=== PATIENT | male | born 1985 | race Caucasian/White ===

== ENCOUNTER 2020-01-09 10:25 | Outpatient (CLI) | payer BC, SELFPAY ==
--- NOTE | ~2020-01-09 | XR_ITS ---
EXAMINATION: XR lumbar spine 2-3V DATE: 01/09/2020 11:09 INDICATION: Dorsalgia unspecified TECHNIQUE: Anteroposterior and lateral views of the lumbar spine, and cone-down lateral view of the l umbosacral junction were obtained. COMPARISON: None. FINDINGS: There is mild anterior wedging of L1 and L2 vertebral bodies, likely physiologic. There are 3 mm of retrolisthesis of L4 on L5. No acute fracture is identified. There is dorsal displacement at the tip of the coccyx, likely normal variant versus prior injury. Small degenerative osteophytes pro ject from the anterior endplates of multiple vertebral bodies. The intervertebral disc space heights are maintained. IMPRESSION: 1. Mild lumbar spondylosis without acute findings. Reviewed, dictated and finalized at location A.
== END 2020-01-09 10:26 ==
PROVIDERS: PCP Physician Assistant; Visit Provider Physician Assistant
DX: M54.9 Dorsalgia, unspecified (principal)
CPT/HCPCS: 72100

== ENCOUNTER 2020-01-10 09:53 | Outpatient (CLI) | payer BC, SELFPAY ==
[2020-01-10 10:31] LABS: Hematocrit 41.5 % (42.0-52.0); Mean Corpuscular HGB Conc 33.7 g/dl (32-36); Mean Corpuscular Hemoglobin 28.5 pg (26-34); Mean Corpuscular Volume 84.3 fl (80-100); Mean Platelet Volume 8.4 fl (7.4-10.4); Platelet Count Result 295 k/mm3 (150-375); Red Blood Count 4.92 M/mm3 (4.6-6.20); Red Cell Distribution Width 12.1 % (11.5-14.5); White Blood Count 8.9 K/mm3 (4.5-10.0)
[2020-01-10 10:40] LABS: Hemoglobin A1C 6.2 % (<5.7)
[2020-01-10 10:47] LABS: Alanine Aminotransferase 21 U/L (4-50); Albumin Level 4.2 g/dL (3.5-5.1); Alkaline Phosphatase 60 U/L (38-126); Anion Gap 10 mmol/L (8-16); Aspartate Amino Transferase 20 U/L (17-59); Bilirubin,Total 0.3 mg/dL (0.2-1.3); Blood Urea Nitrogen 14 mg/dL (9-20); Calcium 9.2 mg/dL (8.4-10.2); Carbon Dioxide 28 mmol/L (22-30); Chloride 100 mmol/L (98-107); Cholesterol 223 mg/dL (0-200); Estimated Glomerular Filt Rate > 60; Glucose 115 mg/dL (75-110); HDL Direct 28 mg/dL; Sodium 138 mmol/L (137-145); Triglycerides 127 mg/dL (<150)
[2020-01-10 10:58] LABS: LDL Cholesterol Direct 175 mg/dL
[2020-01-10 11:10] LABS: Free T4 Free Thyroxine 1.05 ng/mL (0.78-2.19)
== END 2020-01-10 09:54 | disposition home or self-care (01) ==
PROVIDERS: PCP Family Medicine; Visit Provider Physician Assistant
DX: R53.83 Other fatigue (principal); I10 Essential (primary) hypertension; E78.5 Hyperlipidemia, unspecified; E11.9 Type 2 diabetes mellitus without complications
CPT/HCPCS: 36415; 80053; 80061; 83036; 84439; 84443; 85027

== ENCOUNTER 2020-02-15 13:26 | Emergency (ER) | payer BC, SELFPAY ==
--- NOTE | ~2020-02-15 | US_ITS ---
EXAMINATION: US venous doppler LE RT EXAM DATE: 02/15/2020 14:59 INDICATION: Right leg swelling and pain. TECHNIQUE: Multiple grayscale, color flow and Doppler images of the right lower extremity deep venous system were obtained and reviewed. There is no prior study for comparison. FINDINGS: The right common femoral, femoral and profunda veins demonstrate normal color flow, respira tory variation, augmentation and compressibility. Compressibility, color flow confirmed within the r ight popliteal, posterior tibial, peroneal, and greater saphenous veins. IMPRESSION: 1. No right lower extremity deep venous thrombosis. Reviewed, dictated and finalized at location A. NK DASHBOARD DEVELOPER
[2020-02-15 13:33] VITALS: BP 162/107; PULSE 112; RESP 17; TEMP 36.8; O2SAT 98
[2020-02-15 13:56] LABS: Basophils Absolute Auto 0.1 K/mm3 (0.0-0.1); Basophils Percent Auto 0.8 % (0.2-1.2); Eosinophils Absolute Auto 0.2 K/mm3 (0-0.3); Eosinophils Percent Auto 1.7 % (0-4.4); Hemoglobin 14.5 g/dL (14.0-18.0); Immature Granulocyte Absolute 0.04 K/mm3 (0.00-0.031); Immature Granulocyte Percent A 0.4 % (0-0.5); Lymphocytes Absolute Auto 2.26 K/mm3 (0.9-3.2); Lymphocytes Percent Auto 21.3 % (18.3-44.2); Mean Corpuscular HGB Conc 33.7 g/dl (32-36); Mean Corpuscular Hemoglobin 28.9 pg (26-34); Mean Corpuscular Volume 85.8 fl (80-100); Mean Platelet Volume 8.1 fl (7.4-10.4); Monocytes Absolute Auto 1.1 K/mm3 (0.1-0.6); Monocytes Percent Auto 10.2 % (2.6-8.5); Neutrophils Percent Auto 65.6 % (45.5-73.1); Platelet Count Result 319 k/mm3 (150-375); Red Blood Count 5.01 M/mm3 (4.6-6.20); Red Cell Distribution Width 12.7 % (11.5-14.5); White Blood Count 10.6 K/mm3 (4.5-10.0)
--- NOTE | 2020-02-15 14:06 | ED.GENADULT ---
HPI - General Adult General Chief complaint: Extremity Injury, Lower Stated complaint: right leg swollen and reddened Time Seen by Provider: 02/15/20 13:33 Source: patient Mode of arrival: ambulatory Limitations: no limitations History of Present Illness HPI narrative: Patient is a 35-year-old male who presents with ankle pain and swelling noticed yesterday went to urgent care referred to emergency department patient with history of psoriasis has redness and swelling and tenderness around the ankle joint patient denies fever chills or other complaints and is otherwise resting comfortably in the room Related Data Allergies Allergy/AdvReac Type Severity Reaction Status Date / Time No Known Allergies Allergy Unknown Verified 02/15/20 13:32 Review of Systems Review of Systems: All systems reviewed & are unremarkable except as noted in HPI and below PMFSH Past Medical History Medical History HTN (hypertension) Psoriasis Psoriasis Family History Family History Father Diabetes mellitus Depression Hypertension Family history of cardiovascular disease Sibling Depression Hypertension Mother Family history of cardiovascular disease Social History Social History Smoking status: Never smoker Second hand tobacco smoke exposure: Yes Alcohol intake: never Substance use: never Gender identity (if verbalized by the patient): Male Exam Narrative: Exam Narrative: GENERAL: Well-appearing, well-nourished, and in no acute distress. HEAD: Normocephalic, atraumatic. EYES: PERRLA and EOMI. ENT: Nares clear, no rhinorrhea or epistaxis. Mucous membranes moist. CHEST: Clear to auscultation. No respiratory distress. No wheezes rales or rhonchi HEART: Regular rate and rhythm. No murmur heard. EXTREMITIES: Normal range of motion. No edema. SKIN: Warm, dry, no rash. Patient with rash around the bilateral ankles and shins consistent with psoriasis slight swelling of the right ankle minimal erythematous changes if any no drainage NEURO: No focal deficits. Alert and oriented x3. Neurovascularly intact. Capillary refill less than 2 seconds PSYCH: Normal mood and affect. Course Course Emergency Course: Patient in the room no distress will be treated for cellulitis likely secondary to his open wounds given his psoriasis patient otherwise in the room in no distress afebrile nontoxic-appearing agreeing to follow with primary care given reasons to return Vital Signs Vital signs: Vital Signs Temperature 98.3 F 02/15/20 13:33 Pulse Rate 112 H 02/15/20 13:33 Respiratory Rate 17 02/15/20 13:33 Blood Pressure 162/107 H 02/15/20 13:33 Pulse Oximetry 98 02/15/20 13:33 Temperature 98.3 F 02/15/20 13:33 Pulse Rate 112 H 02/15/20 13:33 Respiratory Rate 17 02/15/20 13:33 Blood Pressure 162/107 H 02/15/20 13:33 Pulse Oximetry 98 02/15/20 13:33 Medical Decision Making MDM Narrative Medical decision making narrative: Patients injury or pain is consistent with musculoskeletal etiology. No signs of neurological or vascular compromise on exam. Compartments and tisues are soft without signs of compartment syndrome. Pain is felt appropriate for further evaluation on an outpatient basis. Patient will be treated for cellulitis Vital Signs Vital Signs: Vital Signs Temperature 98.3 F 02/15/20 13:33 Pulse Rate 112 H 02/15/20 13:33 Respiratory Rate 17 02/15/20 13:33 Blood Pressure 162/107 H 02/15/20 13:33 Pulse Oximetry 98 02/15/20 13:33 Temperature 98.3 F 02/15/20 13:33 Pulse Rate 112 H 02/15/20 13:33 Respiratory Rate 17 02/15/20 13:33 Blood Pressure 162/107 H 02/15/20 13:33 Pulse Oximetry 98 02/15/20 13:33 Lab Data Result diagrams: 02/15/20 13:49 02/15/20 13:49 Labs: La
[2020-02-15 14:37] LABS: Alanine Aminotransferase 25 U/L (4-50); Albumin Level 4.3 g/dL (3.5-5.1); Alkaline Phosphatase 68 U/L (38-126); Anion Gap 5 mmol/L (8-16); Aspartate Amino Transferase 28 U/L (17-59); Bilirubin,Total 0.5 mg/dL (0.2-1.3); Blood Urea Nitrogen 17 mg/dL (9-20); CRP 1.6 mg/dL (<1.0); Calcium 9.5 mg/dL (8.4-10.2); Carbon Dioxide 33 mmol/L (22-30); Chloride 99 mmol/L (98-107); Estimated CRCL calculation 126 ml/min; Estimated Glomerular Filt Rate > 60; Glucose 99 mg/dL (75-110); Potassium 3.6 mmol/L (3.4-5.0); Sodium 137 mmol/L (137-145)
[2020-02-15] MEDS: SODIUM CHLORIDE 0.9% IV 1,000 ML 999 ML IV CONT (15:30)
[2020-02-15 16:46] VITALS: BP 147/91; PULSE 97; RESP 17; O2SAT 98
== END 2020-02-15 16:47 | disposition home or self-care (01) ==
PROVIDERS: Emergency Medicine Emergency Medical Services; Emergency Provider Emergency Medicine; PCP Family Medicine
DX: L03.115 Cellulitis of right lower limb (principal); I10 Essential (primary) hypertension
CPT/HCPCS: 36415; 80053; 85025; 86140; 93971; 96360; 99284; J7030

== ENCOUNTER 2020-02-21 11:04 | Outpatient (CLI) | payer BC, SELFPAY ==
--- NOTE | ~2020-02-21 | XR_ITS ---
XR ankle RT min 3V 02/21/2020 11:48 INDICATION: Right ankle pain PROCEDURE: 4 views right ankle COMPARISON: No prior studies for comparison. FINDINGS: Fracture, dislocation or subluxation is not identified. There is moderate diffuse soft tiss ue swelling. The soft tissues appear within normal limits. No foreign bodies are identified. There a re mild degenerative changes of the midfoot. IMPRESSION: 1: NO ACUTE BONE OR JOINT ABNORMALITY IDENTIFIED. Reviewed, dictated and finalized at location A. UST DRIER
== END 2020-02-21 11:05 ==
PROVIDERS: PCP Family Medicine; Visit Provider Physician Assistant
DX: M25.579 Pain in unspecified ankle and joints of unspecified foot (principal)
CPT/HCPCS: 73610

== ENCOUNTER 2020-04-01 00:23 | Emergency (ER) | payer OTHER, BC, SELFPAY ==
--- NOTE | ~2020-04-01 | XR_ITS ---
XR knee LT 3V 04/01/2020 01:18 Indication: Left knee pain after fall Procedure: 4 views left knee Comparison: 02/12/2019 Findings: Mild osteoarthritis of the left knee. No significant joint effusion. No foreign bodies. No acute fracture or traumatic malalignment. Impression: 1: No acute fracture. Reviewed, dictated and finalized at location A. OGICAL MODELER Impression: 1: No acute fracture.
--- NOTE | ~2020-04-01 | XR_ITS ---
XR shoulder LT min 2V 04/01/2020 01:18 Indication: Left shoulder pain after fall Procedure: 4 views left shoulder Comparison: No prior studies for comparison. Findings: There is a lucency in the mid aspect of the left clavicle. Nondisplaced fracture not exclud ed. There is anatomic alignment of the left shoulder. Visualized lung parenchyma unremarkable. Impression: 1: Possible nondisplaced left midclavicular fracture. Reviewed, dictated and finalized at location A. LOGIST Impression: 1: Possible nondisplaced left midclavicular fracture.
[2020-04-01 00:28] VITALS: BP 154/96; PULSE 106; RESP 12; TEMP 36.6; O2SAT 96
--- NOTE | 2020-04-01 01:14 | ED.GENADULT ---
HPI - General Adult General Chief complaint: Fall Stated complaint: Fall, Hit head Time Seen by Provider: 04/01/20 00:38 History of Present Illness HPI narrative: Patient 35-year-old gentleman who presents the emergency department with chief complaint of fall. Patient reports he was at work and tripped over a box and fell patient states he struck a wall with his left shoulder and left knee. Patient states he also struck his head against the wall had no loss of consciousness denies nausea or vomiting reports that he has normal mental status just feels a little lightheaded afterwards. Patient denies being on blood thinners denies being on antiplatelet therapy denies previous head injury or prior intracranial process. Patient reports his left shoulder hurts whenever he moves it in his left knee hurts whenever he moves it. Related Data Allergies Allergy/AdvReac Type Severity Reaction Status Date / Time No Known Allergies Allergy Unknown Verified 04/01/20 00:32 Review of Systems Review of Systems: Narrative: A 10 system review of systems was completed on the patient and is negative except for what is stated in the HPI. Nursing and ancillary documentation was reviewed. PMFSH Past Medical History Medical History HTN (hypertension) Psoriasis Psoriasis Family History Family History Father Diabetes mellitus Depression Hypertension Family history of cardiovascular disease Sibling Depression Hypertension Mother Family history of cardiovascular disease Social History Social History Smoking status: Never smoker Second hand tobacco smoke exposure: Yes Alcohol intake: never Substance use: never Gender identity (if verbalized by the patient): Male Exam Narrative: Exam Narrative: GENERAL: Well-appearing, well-nourished, and in no acute distress. HEAD: Normocephalic, atraumatic. EYES: PERRLA and EOMI. ENT: Nares clear, no rhinorrhea or epistaxis. Mucous membranes moist. NECK: Supple. CHEST: Clear to auscultation. No respiratory distress. HEART: Regular rate and rhythm. No murmur heard. Normal peripheral pulses. ABDOMEN: Soft, nontender, nondistended, normal active bowel sounds. EXTREMITIES: Normal range of motion. No edema. There is tenderness to palpation in the left shoulder and the left knee there is no bony step-off noted no deformity SKIN: Warm, dry, no rash. NEURO: No focal deficits. Alert and oriented x3. GCS 15 PSYCH: Normal mood and affect. Course Course Emergency Course: Plain film x-rays of the left shoulder and left knee were obtained which showed no evidence of fracture Given the patient is GCS 15 and shows no focal neurological deficit was discussed with the patient whether helical imaging of the brain was necessary. It was explained that at this time emergent head CT was not required and it was recommended that conservative management be carried out. Vital Signs Vital signs: Vital Signs Temperature 36.6 C 04/01/20 00:28 Pulse Rate 106 H 04/01/20 00:28 Respiratory Rate 12 04/01/20 00:28 Blood Pressure 154/96 H 04/01/20 00:28 Pulse Oximetry 96 04/01/20 00:28 Temperature 36.6 C 04/01/20 00:28 Pulse Rate 106 H 04/01/20 00:28 Respiratory Rate 12 04/01/20 00:28 Blood Pressure 154/96 H 04/01/20 00:28 Pulse Oximetry 96 04/01/20 00:28 Medical Decision Making Vital Signs Vital Signs: Vital Signs Temperature 36.6 C 04/01/20 00:28 Pulse Rate 106 H 04/01/20 00:28 Respiratory Rate 12 04/01/20 00:28 Blood Pressure 154/96 H 04/01/20 00:28 Pulse Oximetry 96 04/01/20 00:28 Temperature 36.6 C 04/01/20 00:28 Pulse Rate 106 H 04/01/20 00:28 Respiratory Rate 12 04/01/20 00:28 Blood Pressure 154/96 H 04/01/20 00:28 Pulse Oximetry 96 04/01/20 00:28
--- NOTE | 2020-04-01 08:51 | PC.NURSE ---
X-ray discrepancy. Pt has nondisplaced clavicle fracture. Called pt at home spoke with him. Informed him to return to ER to get a sling applied and to follow-up with Dr Gandara. Pt also got a work note to be off work until released by Dr Gandara.
--- NOTE | 2020-04-01 10:00 | PC.NURSE ---
Placed x-large sling to left arm. Gave instructions on following up with Dr Gandara. Explained importance of wearing the sling. Also gave pt off work release and explained the work release to him. Voiced understanding - Gait steady leaving the ER
== END 2020-04-01 01:29 | disposition home or self-care (01) ==
PROVIDERS: Emergency Provider Emergency Medicine; PCP Family Medicine
DX: S09.90XA Unspecified injury of head, initial encounter (principal); W18.09XA Striking against other object with subsequent fall, initial encounter; S40.012A Contusion of left shoulder, initial encounter; S80.02XA Contusion of left knee, initial encounter; I10 Essential (primary) hypertension
CPT/HCPCS: 73030; 73562; 99284; A4565

== ENCOUNTER 2020-07-10 12:53 | Emergency (ER) | payer BC, SELFPAY ==
--- NOTE | 2020-07-10 13:04 | ECG_ITS ---
Measurements Intervals [place] Rate: 85 P: 11 [place]: 143 QRS: 10 QRSD: 97 T: 18 QT: 348 QTc: 414 Interpretive Statements SINUS RHYTHM BORDERLINE ST-T WAVE ABNORMALITY- HIGH LATERAL LEADS BORDERLINE ECG Electronically Signed On 07-10-2020 13:18:55 CDT by Sergei Shore D.O.
--- NOTE | 2020-07-10 13:10 | ED.DIZZY ---
HPI - Dizziness General Chief Complaint: Unspecified Stated Complaint: dizzy, weak Time Seen by Provider: 07/10/20 12:59 History of Present Illness HPI Narrative: Patient is a 35-year-old male who presents to the ER with dizziness. Began around 7 AM. Associate with some chest tightness. Dizziness And feel unsteady when he moves. Is worse with turning his head. No change in vision or hearing. No focal weakness or numbness. Symptoms were making him feel confused while he was working at [employer] where he opted to come in for further evaluation. He is found no alleviating factors. Related Data Allergies Allergy/AdvReac Type Severity Reaction Status Date / Time No Known Allergies Allergy Unknown Verified 04/01/20 00:32 Review of Systems Review of Systems: All systems reviewed & are unremarkable except as noted in HPI and below Constitutional: Constitutional: Denies chills, Denies fever(s) and Denies weakness ENT: Reports dizziness, Denies nasal congestion and Denies sore throat Cardiovascular: Cardiovascular: Reports chest pain, Denies rapid heart rate and Denies radiating jaw, neck or arm pain Respiratory: Respiratory: Denies cough and Denies dyspnea Neurologic: Denies headache(s), Denies focal weakness and Denies numbness PMFSH Past Medical History Medical History (Updated 07/10/20 @ 14:49 by Nathen Tamayo MD) HTN (hypertension) Psoriasis Psoriasis Surgical History Surgical History (Updated 07/10/20 @ 13:11 by Nathen Tamayo MD) No pertinent past surgical history Family History Family History Father Diabetes mellitus Depression Hypertension Family history of cardiovascular disease Sibling Depression Hypertension Mother Family history of cardiovascular disease Social History Social History Smoking status: Never smoker Second hand tobacco smoke exposure: Yes Alcohol intake: never Substance use: never Gender identity (if verbalized by the patient): Male Exam Narrative: Exam Narrative: GENERAL: Well-appearing, well-nourished, and in no acute distress. HEAD: Normocephalic, atraumatic. EYES: PERRL and EOMI. ENT: Mucous membranes moist. Normal right tympanic membrane. Left TM obscured by cerumen impaction. CHEST: Clear to auscultation. No respiratory distress. HEART: Regular rate and rhythm. Normal peripheral pulses. EXTREMITIES: Normal range of motion. Normal ability to stand and ambulate. 1+ edema. SKIN: Warm, dry, psoriatic rash prominently over the shins and knees as well as the hands. NEURO: Alert and oriented x3. Ambulates with steady gait. Cranial nerves II through XII intact. Course Course Emergency Course: Left TM appears normal after ear irrigation by nurse to remove cerumen impaction. Dizziness resolved. Discharge home. Vital Signs Vital signs: Vital Signs Temperature 98.4 F 07/10/20 13:13 Pulse Rate 88 07/10/20 13:13 Respiratory Rate 18 07/10/20 13:13 Blood Pressure 144/97 H 07/10/20 13:13 Pulse Oximetry 99 07/10/20 13:13 Temperature 98.4 F 07/10/20 13:13 Pulse Rate 87 07/10/20 14:33 Respiratory Rate 16 07/10/20 14:33 Blood Pressure 124/90 07/10/20 14:33 Pulse Oximetry 100 07/10/20 14:33 Discharge Plan Discharge Clinical Impression: Cerumen impaction, Vertigo Patient Disposition: Home, Self-Care Condition: Stable Instructions: Carbamide Peroxide (Into the ear), Vertigo (ED) Additional Instructions: Return the ER if you have worsening dizziness, you cannot walk, you have focal weakness in arm or leg, you have additional concerns. Prescriptions: No Action lisinopril-hydrochlorothiazide 10-12.5 mg tablet 1 tablet PO DAILY Qty: 90 RF: 1 cephalexin [Keflex] 500 mg capsule 500 mg PO Q8H 10 Days Qty: 30 RF: 0 Follow-up/Referrals: Annmarie Brown MD [Primary Care
[2020-07-10 13:13] VITALS: BP 144/97; PULSE 88; RESP 18; TEMP 36.9; O2SAT 99
[2020-07-10] MEDS: MECLIZINE HCL 25 MG TABLET PO (13:28)
[2020-07-10 14:33] VITALS: BP 124/90; PULSE 87; RESP 16; O2SAT 100
== END 2020-07-10 15:12 | disposition home or self-care (01) ==
PROVIDERS: Emergency Provider Emergency Medicine; PCP Family Medicine
DX: R42 Dizziness and giddiness (principal); H61.22 Impacted cerumen, left ear; I10 Essential (primary) hypertension; R94.31 Abnormal electrocardiogram [ECG] [EKG]
CPT/HCPCS: 69209; 93005; 99283; A9270

== ENCOUNTER 2020-12-11 18:37 | Emergency (ER) | payer BC, SELFPAY ==
[2020-12-11 18:56] VITALS: BP 147/85; PULSE 93; RESP 19; TEMP 37; O2SAT 98
[2020-12-11 19:46] VITALS: BP 131/79; PULSE 90; RESP 29; O2SAT 97
--- NOTE | 2020-12-11 20:01 | ED.GENADULT ---
HPI - General Adult General Chief complaint: Dizziness Stated complaint: dizzy Time Seen by Provider: 12/11/20 19:47 History of Present Illness HPI narrative: Patient 35-year-old gentleman who presents the emergency department with chief complaint of vertigo. Patient reports he was at work and had sudden onset of rotational type dizziness reports it was worse with head movement and improved with rest. Patient states it was rather violent initially did not cause him to have any nausea or vomiting denies any focal neurological deficits reports that it is resolved by the time he arrived in the emergency department. Patient denies chest pain denies dysarthria or problems with speech. Related Data Allergies Allergy/AdvReac Type Severity Reaction Status Date / Time No Known Allergies Allergy Unknown Verified 12/11/20 19:39 Review of Systems Review of Systems: A 10 system review of systems was completed on the patient and is negative except for what is stated in the HPI. Nursing and ancillary documentation was reviewed. PMFSH Past Medical History Medical History HTN (hypertension) Psoriasis Psoriasis Surgical History Surgical History No pertinent past surgical history Family History Family History Father Diabetes mellitus Depression Hypertension Family history of cardiovascular disease Sibling Depression Hypertension Mother Family history of cardiovascular disease Social History Social History Smoking status: Never smoker Second hand tobacco smoke exposure: Yes Alcohol intake: never Substance use: never Gender identity (if verbalized by the patient): Male Exam Narrative: GENERAL: Well-appearing, well-nourished, and in no acute distress. HEAD: Normocephalic, atraumatic. EYES: PERRLA and EOMI. ENT: Nares clear, no rhinorrhea or epistaxis. Mucous membranes moist. NECK: Supple. CHEST: Clear to auscultation. No respiratory distress. HEART: Regular rate and rhythm. No murmur heard. Normal peripheral pulses. ABDOMEN: Soft, nontender, nondistended, normal active bowel sounds. EXTREMITIES: Normal range of motion. No edema. SKIN: Warm, dry, no rash. NEURO: No focal deficits. Alert and oriented x3. Positive Hallpike PSYCH: Normal mood and affect. Course Vital Signs Vital signs: Vital Signs Temperature 37.0 C 12/11/20 18:56 Pulse Rate 93 12/11/20 18:56 Respiratory Rate 19 12/11/20 18:56 Blood Pressure 147/85 H 12/11/20 18:56 Pulse Oximetry 98 12/11/20 18:56 Temperature 37.0 C 12/11/20 18:56 Pulse Rate 90 12/11/20 19:46 Respiratory Rate 29 H 12/11/20 19:46 Blood Pressure 131/79 12/11/20 19:46 Pulse Oximetry 97 12/11/20 19:46 Medical Decision Making Vital Signs Vital Signs: Vital Signs Temperature 37.0 C 12/11/20 18:56 Pulse Rate 93 12/11/20 18:56 Respiratory Rate 19 12/11/20 18:56 Blood Pressure 147/85 H 12/11/20 18:56 Pulse Oximetry 98 12/11/20 18:56 Temperature 37.0 C 12/11/20 18:56 Pulse Rate 90 12/11/20 19:46 Respiratory Rate 29 H 12/11/20 19:46 Blood Pressure 131/79 12/11/20 19:46 Pulse Oximetry 97 12/11/20 19:46 Discharge Plan Discharge Clinical Impression: Benign paroxysmal positional vertigo Qualifiers: Laterality: right Qualified Code(s): H81.11 - Benign paroxysmal vertigo, right ear Patient Disposition: Home, Self-Care Condition: Stable Instructions: Antibiotic Form, Benign Paroxysmal Positional Vertigo (ED) Prescriptions: New meclizine 25 mg tablet 25 mg PO TID PRN (Reason: dizziness) Qty: 30 RF: 0 No Action lisinopril-hydrochlorothiazide 10-12.5 mg tablet 1 tablet PO DAILY Qty: 90 RF: 1 Follow-up/Referrals: Annmarie Brown
[2020-12-11] MEDS: MECLIZINE HCL 25 MG TABLET PO (20:12)
[2020-12-11 20:41] VITALS: BP 143/72; PULSE 87; RESP 20; O2SAT 99
== END 2020-12-11 20:43 | disposition home or self-care (01) ==
LOC: ANHED 20:30
PROVIDERS: Emergency Provider Emergency Medicine; PCP Family Medicine
DX: H81.11 Benign paroxysmal vertigo, right ear (principal); I10 Essential (primary) hypertension
CPT/HCPCS: 99283; A9270

== ENCOUNTER 2021-01-22 10:58 | Emergency (ER) | payer OTHER, BC, SELFPAY ==
--- NOTE | ~2021-01-22 | XR_ITS ---
EXAMINATION: XR ankle RT min 3V INDICATION: Right ankle pain TECHNIQUE: Four views of the right ankle are obtained COMPARISON: 02/21/2020 FINDINGS: Ankle soft tissue swelling is present. There is no fracture, dislocation, or subluxation. P osterior calcaneal enthesophyte is noted. There is mild osteoarthritis of the midfoot. IMPRESSION: 1. Soft tissue swelling without acute osseous abnormality. Reviewed, dictated and finalized at location A.
[2021-01-22 11:20] VITALS: BP 148/83; PULSE 97; RESP 18; TEMP 37.2; O2SAT 98
--- NOTE | 2021-01-22 11:24 | ED.LOWEXIN ---
HPI - Extremity Injury (Lower) General Chief Complaint: Extremity Injury, Lower Stated Complaint: Pain Rt Ankle Source: patient and RN notes reviewed Mode of arrival: ambulatory History of Present Illness HPI Narrative: This is a 36-year-old male that presented to urgent care with complaints of pain to his right ankle status post trauma. Patient is an employee at [employer] and notes that while at work he was walking in his right ankle inverted inwards which caused pain with weightbearing. Patient's imaging negative for fracture dislocation. Patient's pulses are palpable capillary refill within normal limit no neurovascular deficiency noted. The patient denies SOB, CP, palpitation, extremity numbness, lightheadedness, dizziness, constipation, diarrhea, chills, or fever. Related Data Allergies Allergy/AdvReac Type Severity Reaction Status Date / Time No Known Allergies Allergy Unknown Verified 12/11/20 19:39 Review of Systems Review of Systems: A 14 organ system Review of Systems was performed and pertinent positives included in the HPI, otherwise remaining ROS is negative. [facility] Past Medical History Medical History HTN (hypertension) Psoriasis Psoriasis Surgical History Surgical History No pertinent past surgical history Family History Family History Father Diabetes mellitus Depression Hypertension Family history of cardiovascular disease Sibling Depression Hypertension Mother Family history of cardiovascular disease Social History Social History Smoking status: Never smoker Second hand tobacco smoke exposure: Yes Alcohol intake: never Substance use: never Gender identity (if verbalized by the patient): Male Exam Narrative: GENERAL: This is a well-nourished, well-developed patient, in no apparent distress. HEAD: normocephalic, atraumatic. EYES: PERRL. Sclera clear/white. Vision is grossly intact. EARS: External ears normal, auditory canals clear and without drainage, TMs normal without perforation. Hearing grossly intact. NOSE: External nose normal with no obvious nasal discharge, nares without redness, no rhinorrhea. THROAT: Mucous membranes moist, posterior pharynx clear. NECK: Neck supple, non-tender without lymphadenopathy, masses or thyromegaly. CARDIOVASCULAR: Regular rate and rhythm without murmurs, gallops, or rubs. RESPIRATORY: Clear to auscultation. Breath sounds equal bilaterally. No wheezes, rales, or rhonchi. GASTROINTESTINAL: Abdomen soft, non-tender, nondistended. Bowel sounds are active. No hepato-splenomegaly, or palpable masses. No guarding. SKIN: warm, intact with no suspicious lesions or rash, good texture and turgor. NEURO: awake, alert, and oriented to person, place and time. There were no obvious focal neurologic abnormalities. Steady gait EXTREMITIES: Normal range of motion with pain to right ankle. Slight edema to the right ankle. No calf tenderness. Negative Homans sign bilaterally. BACK: Nontender without deformity or crepitance. No flank tenderness. Course Course Emergency Course: Patient will be treated for strain or sprain will discharge with Flexeril and ibuprofen and instructed to follow-up with primary care physician if his symptoms do not resolve. Procedures Other Procedure Procedure 1: Other Procedure: Ariel wrap with crutches to the right ankle MDM - Extremity Injury (Lower) Imaging Data Attestation: I personally reviewed and interpreted this imaging study as follows: My impression: Negative for fracture dislocation Discharge Plan Discharge Clinical Impression: Sprain and strain of right ankle Patient Disposition: Home, Self-Care Condition: Stable Instructions: Antibiotic Form, Ankle Sprain (ED) Additional
== END 2021-01-22 12:14 | disposition home or self-care (01) ==
PROVIDERS: Emergency Provider Nurse Practitioner; PCP Family Medicine
DX: S93.401A Sprain of unspecified ligament of right ankle, initial encounter (principal); S96.911A Strain of unspecified muscle and tendon at ankle and foot level, right foot, initial encounter; X50.9XXA Other and unspecified overexertion or strenuous movements or postures, initial encounter; Y93.01 Activity, walking, marching and hiking; Y99.0 Civilian activity done for income or pay; I10 Essential (primary) hypertension; L40.9 Psoriasis, unspecified
CPT/HCPCS: 73610; 99213; G0463

== ENCOUNTER 2021-10-06 11:02 | Emergency (ER) | payer BC, SELFPAY ==
[2021-10-06] VITALS (15 sets, daily range): BP systolic 116–144; BP diastolic 71–89; PULSE 93–108; RESP 17–27; TEMP 36.8–37.8; O2SAT 95–100
--- NOTE | ~2021-10-06 | XR_ITS ---
EXAMINATION: XR chest 1V portable DATE: 10/06/2021 12:32 INDICATION: Syncope. TECHNIQUE: A single frontal view of the chest was obtained. COMPARISON: None. FINDINGS: The chest demonstrates clear lungs without pneumonia, pleural effusion, or pneumothorax. Th e heart size is normal. IMPRESSION: 1. No acute cardiopulmonary disease. Reviewed, dictated and finalized at location A.
--- NOTE | 2021-10-06 11:02 | ECG_ITS ---
Measurements Intervals [place] Rate: 102 P: 37 RI: 164 QRS: 6 QRSD: 88 T: 17 QT: 323 QTc: 422 Interpretive Statements SINUS TACHYCARDIA CONSIDER INFERIOR INFARCT, AGE INDETERMINATE NONSPECIFIC ST & T-WAVE ABNORMALITY- ANTEROLAT/HIGH LAT LEADS BASELINE ARTIFACT- I, II, III, V1 ABNORMAL ECG Electronically Signed On 10-06-2021 11:22:46 CDT by Sergei Shore D.O.
[2021-10-06 11:11] LABS: Glucose Point of Care 121 mg/dl (65-105)
[2021-10-06 11:22] LABS: Basophils Absolute Auto 0.1 K/mm3 (0.0-0.1); Basophils Percent Auto 0.8 % (0.2-1.2); Eosinophils Absolute Auto 0.3 K/mm3 (0-0.3); Eosinophils Percent Auto 3.4 % (0-4.4); Hematocrit 41.2 % (42.0-52.0); Hemoglobin 13.7 g/dL (14.0-18.0); Immature Granulocyte Absolute 0.08 K/mm3 (0.00-0.031); Immature Granulocyte Percent A 0.9 % (0-0.5); Lymphocytes Absolute Auto 1.84 K/mm3 (0.9-3.2); Lymphocytes Percent Auto 19.8 % (18.3-44.2); Mean Corpuscular HGB Conc 33.3 g/dl (32-36); Mean Corpuscular Hemoglobin 28.6 pg (26-34); Mean Platelet Volume 8.5 fl (7.4-10.4); Monocytes Absolute Auto 0.6 K/mm3 (0.1-0.6); Monocytes Percent Auto 6.8 % (2.6-8.5); Neutrophils Absolute Auto 6.4 K/mm3 (1.3-6.7); Neutrophils Percent Auto 68.3 % (45.5-73.1); Platelet Count Result 277 k/mm3 (150-375); Red Blood Count 4.79 M/mm3 (4.6-6.20); Red Cell Distribution Width 12.9 % (11.5-14.5); White Blood Count 9.3 K/mm3 (4.5-10.0)
[2021-10-06 11:34] LABS: Alanine Aminotransferase 23 U/L (6-50); Albumin Level 4.3 g/dL (3.5-5.1); Alkaline Phosphatase 53 U/L (38-126); Anion Gap 7 mmol/L (8-16); Aspartate Amino Transferase 19 U/L (17-59); Bilirubin,Total 0.3 mg/dL (0.2-1.3); Blood Urea Nitrogen 12 mg/dL (9-20); Calcium 9.4 mg/dL (8.4-10.2); Carbon Dioxide 29 mmol/L (22-30); Chloride 104 mmol/L (98-107); Estimated CRCL calculation 129 ml/min; Estimated Glomerular Filt Rate > 60; Glucose 116 mg/dL (65-110); Potassium 3.4 mmol/L (3.4-5.0); Sodium 140 mmol/L (137-145)
[2021-10-06 12:28] LABS: Creatine Kinase 47 U/L (55-170)
[2021-10-06] MEDS: SODIUM CHLORIDE 0.9% IV 1,000 ML 999 ML IV CONT ×2 (12:30→13:55)
[2021-10-06 12:32] LABS: Troponin I < 0.012 ng/mL (0.000-0.034)
--- NOTE | 2021-10-06 12:46 | ED.GENADULT ---
HPI - General Adult General Chief complaint: Syncope Stated complaint: syncopal Time Seen by Provider: 10/06/21 12:01 Source: RN notes reviewed History of Present Illness HPI narrative: Patient presents emergency department from work for syncopal episode. 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 Following feeling overheated he began to feel lightheaded and states he sat down on a bench where he had a syncopal episode lasting approximately 10 seconds per her coworkers the patient did not fall to the ground he states that he experienced no chest pain or shortness of breath he states he feels fine at this time he denies any recent illness he denies any previous history of syncopal episodes he states he did feel very hot prior to the episode Related Data Allergies Allergy/AdvReac Type Severity Reaction Status Date / Time No Known Allergies Allergy Unknown Verified 10/06/21 12:30 Review of Systems Review of Systems: Gen.: Denies fevers or chills Eyes: Denies eye pain or visual change ENT: Denies congestion Respiratory: Denies shortness of breath or cough CV: Reports syncopal episode GI: Denies abdominal pain nausea, emesis or diarrhea Musculoskeletal: Denies back pain or muscle pain Neuro: Denies numbness, tingling, weakness or focal weakness Skin: Denies rash Except as documented, all other systems reviewed and negative [facility] Past Medical History Medical History HTN (hypertension) Psoriasis Psoriasis Surgical History Surgical History No pertinent past surgical history Family History Family History Father Diabetes mellitus Depression Hypertension Family history of cardiovascular disease Sibling Depression Hypertension Mother Family history of cardiovascular disease Social History Social History Smoking status: Never smoker Second hand tobacco smoke exposure: Yes Alcohol intake: never Substance use: never Gender identity (if verbalized by the patient): Male Exam Narrative: APPEARANCE: No acute distress, nontoxic, resting in bed EYES: EOMI, PERRL HEENT: Normocephalic, atraumatic, OMM RESPIRATORY: No respiratory distress Clear to auscultation bilaterally with no rhonchi wheezing or rales. CARDIOVASCULAR: Regular rate and rhythm without murmurs rubs or gallops. ABDOMINAL: Soft, nontender, nondistended, no rebound or guarding MUSCULOSKELETAl: Moves all extremities. No clubbing, cyanosis or edema. NEURO: Awake and alert. Following commands, speech normal, no focal deficits SKIN:: Warm, dry. No rashes lesions or abrasions PSYCHIATRIC: Normal affect/mood, Course Course Emergency Course: Patient is remained asymptomatic throughout stay in ED states he is feeling much better Discussed with patient results of workup and diagnosis. Discussed need for follow-up with primary care, proper use of medication, and reasons to return to the emergency department. Patient understands and agrees to current treatment plan Vital Signs Vital signs: Vital Signs Temperature 100.1 F H 10/06/21 11:03 Pulse Rate 105 H 10/06/21 11:03 Respiratory Rate 22 H 10/06/21 11:03 Pulse Oximetry 96 10/06/21 11:03 Oxygen Delivery Room Air 10/06/21 11:03 Temperature 98.2 F 10/06/21 12:21 Pulse Rate 95 10/06/21 15:55 Respiratory Rate 18 10/06/21 15:55 Blood Pressure 123/89 10/06/21 15:55 Pulse Oximetry 98 10/06/21 15:55 Oxygen Delivery Room Air 10/06/21 11:03 Medical Decision Making MDM Narrative Medical decision making narrative: Patient's episode of syncope is felt due to high risk cause. Syncopal episode was brief and patient is now back to normal mental status. EKG is reviewed without high-risk german
[2021-10-06 13:39] LABS: Appearance Urine Clear (Clear); Bilirubin Urine Negative (Negative); Color Urine Yellow (Yellow); Glucose Urine UA Negative (Negative); Ketones Urine Negative (Negative); Leukocyte Esterase Ur Negative LEU/UL (Negative); Nitrate Urine Negative (Negative); Protein Urine Negative (Negative); Specific Grav Ur 1.025 (1.001-1.035); Urobilinogen Urine 0.2 mg/dL (<2.0)
[2021-10-06 13:48] LABS: Mucus Urine Rare /lpf; Squamous Epithelial Cell Urine Rare /hpf (Few); WBC Urine 0-3 /hpf
[2021-10-06 13:49] LABS: Add Urine Microscopic? YES; Blood Urine Trace-Intact (Negative)
[2021-10-06 14:34] LABS: D Dimer 0.31 ug/mL (<0.48)
[2021-10-06 15:47] LABS: Troponin I < 0.012 ng/mL (0.000-0.034)
== END 2021-10-06 16:37 | disposition home or self-care (01) ==
PROVIDERS: Emergency Medicine; Emergency Provider Emergency Medicine; PCP Family Medicine
DX: R55 Syncope and collapse (principal); I10 Essential (primary) hypertension; R00.0 Tachycardia, unspecified; R94.31 Abnormal electrocardiogram [ECG] [EKG]
CPT/HCPCS: 36415; 71045; 80053; 81001; 82550; 82948; 84484; 85025; 85380; 93005; 96360; 96361; 99284; J7030

== ENCOUNTER 2021-11-10 09:01 | Emergency (ER) | payer BC, SELFPAY ==
--- NOTE | ~2021-11-10 | XR_ITS ---
XR knee RT min 4V 11/10/2021 09:29 INDICATION: Right knee pain PROCEDURE: 4 views right knee COMPARISON: 09/30/2003 FINDINGS: Fracture, dislocation or subluxation is not identified. No significant joint effusion. The soft tissues appear within normal limits. No foreign bodies are identified. IMPRESSION: 1: NO ACUTE BONE OR JOINT ABNORMALITY IDENTIFIED. Reviewed, dictated and finalized at location B.
[2021-11-10 09:04] VITALS: BP 150/94; PULSE 100; RESP 18; TEMP 36.7; O2SAT 99
--- NOTE | 2021-11-10 09:48 | ED.GENADULT ---
HPI - General Adult General Chief complaint: Extremity Injury, Lower Stated complaint: right knee pain Time Seen by Provider: 11/10/21 09:09 Source: RN notes reviewed History of Present Illness HPI narrative: Patient presents emerged department from home for right knee pain. Patient states that he fell walking in a parking lot when he tripped over a planter in the parking lot approximately 2 days ago. He states that he came down on his right leg and felt that it bent awkwardly states he has had pain in the right knee since that time this worse with bending the knee states he has been taking ibuprofen with help with the pain and swelling he denies any other trauma or injury denies any pain over his hip or ankle Related Data Allergies Allergy/AdvReac Type Severity Reaction Status Date / Time No Known Allergies Allergy Unknown Verified 10/06/21 12:30 Review of Systems Review of Systems: Gen.: Denies fevers or chills Musculoskeletal: See HPI Neuro: Denies numbness, tingling, weakness Skin: Denies rash Endo: Denies DM PMFSH Past Medical History Medical History HTN (hypertension) Psoriasis Psoriasis Surgical History Surgical History No pertinent past surgical history Family History Family History Father Diabetes mellitus Depression Hypertension Family history of cardiovascular disease Sibling Depression Hypertension Mother Family history of cardiovascular disease Social History Social History Smoking status: Never smoker Second hand tobacco smoke exposure: Yes Alcohol intake: never Substance use: never Gender identity (if verbalized by the patient): Male Exam Narrative: APPEARANCE: No acute distress, nontoxic, resting in bed Eyes: EOMI HEENT: Normocephalic, atraumatic, RESPIRATORY: No respiratory distress MUSCULOSKELETAl: Tender to palpation of the right medial lateral and posterior knee mild swelling no ecchymosis no tenderness of the right ankle or hip dorsalis pedis pulse 2+ neuro vas intact pain with flexion greater than 45 degrees NEURO: Awake and alert. Following commands, speech normal, no focal deficits SKIN:: Warm, dry. Normal Color no rash or lesions Course Course Emergency Course: Discussed with patient results of workup and diagnosis. Discussed need for follow-up with primary care, proper use of medication, and reasons to return to the emergency department. Patient understands and agrees to current treatment plan Vital Signs Vital signs: Vital Signs Temperature 98.0 F 11/10/21 09:04 Pulse Rate 100 11/10/21 09:04 Respiratory Rate 18 11/10/21 09:04 Blood Pressure 150/94 H 11/10/21 09:04 Pulse Oximetry 99 11/10/21 09:04 Oxygen Delivery Room Air 11/10/21 09:04 Temperature 98.0 F 11/10/21 09:04 Pulse Rate 100 11/10/21 09:04 Respiratory Rate 18 11/10/21 09:04 Blood Pressure 150/94 H 11/10/21 09:04 Pulse Oximetry 99 11/10/21 09:04 Oxygen Delivery Room Air 11/10/21 09:04 Medical Decision Making Vital Signs Vital Signs: Vital Signs Temperature 98.0 F 11/10/21 09:04 Pulse Rate 100 11/10/21 09:04 Respiratory Rate 18 11/10/21 09:04 Blood Pressure 150/94 H 11/10/21 09:04 Pulse Oximetry 99 11/10/21 09:04 Oxygen Delivery Room Air 11/10/21 09:04 Temperature 98.0 F 11/10/21 09:04 Pulse Rate 100 11/10/21 09:04 Respiratory Rate 18 11/10/21 09:04 Blood Pressure 150/94 H 11/10/21 09:04 Pulse Oximetry 99 11/10/21 09:04 Oxygen Delivery Room Air 11/10/21 09:04 Discharge Plan Discharge Clinical Impression: Contusion of knee, right Patient Disposition: Home, Self-Care Condition: Stable Instructions: Antibiotic Form, Contusion in Adults (ED) Additional Instructio
== END 2021-11-10 10:10 | disposition home or self-care (01) ==
PROVIDERS: Emergency Provider Emergency Medicine; PCP Family Medicine
DX: S80.01XA Contusion of right knee, initial encounter (principal); I10 Essential (primary) hypertension; W01.0XXA Fall on same level from slipping, tripping and stumbling without subsequent striking against object, initial encounter
CPT/HCPCS: 73564; 99283

== ENCOUNTER 2022-03-14 14:30 | Emergency (ER) | payer BC, SELFPAY ==
[2022-03-14 15:15] VITALS: BP 142/93; PULSE 88; RESP 20; TEMP 36.5; O2SAT 97
--- NOTE | 2022-03-14 15:36 | ED.EAR ---
HPI - Ear Problem General Chief complaint: Ear Stated complaint: Lt Ear Irritation Time Seen by Provider: 03/14/22 15:36 Source: patient Mode of arrival: ambulatory Limitations: no limitations History of Present Illness HPI Narrative: 37-year-old male presented for complaint of left ear pain for 4 days. He endorses fullness sensation and muffled hearing. Pain radiates to TMJ. He denies associated sinus congestion, tinnitus, dizziness, nausea, vomiting, fevers or chills. He has taken ibuprofen without significant change in symptoms. He endorses a history of earwax impaction. He attempted [id number] drops 2 days ago without any change. MD Complaint: ear pain Related Data Home Medications Medication Instructions Recorded Confirmed clobetasol 0.05 % topical ointment 1 applic topical DAILY 03/14/22 03/14/22 Allergies Allergy/AdvReac Type Severity Reaction Status Date / Time No Known Allergies Allergy Unknown Verified 03/14/22 15:34 Review of Systems Review of Systems: ROS per HPI. All systems reviewed & are unremarkable except as noted in HPI and below PMFSH Past Medical History Medical History HTN (hypertension) Psoriasis Psoriasis Surgical History Surgical History No pertinent past surgical history Family History Family History Father Diabetes mellitus Depression Hypertension Family history of cardiovascular disease Sibling Depression Hypertension Mother Family history of cardiovascular disease Social History Social History Smoking status: Never smoker Second hand tobacco smoke exposure: Yes Alcohol intake: never Substance use: never Gender identity (if verbalized by the patient): Male Comments At time of signature, agree with nursing past medical, surgical, social and family history. There is no relevant family history pertinent to the presenting complaint Exam Narrative: GENERAL: Well-appearing EYES: PERRLA, conjunctivae clear ENT: Nares clear. Mucous membranes moist. Dental pain/jaw pain to broken tooth at #17, mild gum swelling; Right TM pearly magallanes with normal light reflex; Left TM unable to visualize due to cerumen impaction; no tragal tenderness. CHEST: Clear to auscultation, breath sounds equal. No wheezing, rhonchi, rales, or stridor. HEART: Regular rate and rhythm. No murmur heard. SKIN: Warm, dry, no rash. NEURO: Alert and oriented x3. PSYCH: Normal mood and affect Course Course Emergency Course: Patient is aware of diagnosis, understands and agrees to treatment plan. Anticipatory guidance given. Patient agrees to follow-up as directed and is aware of reasons to seek care at the emergency department. Portions of this record may have been created with voice recognition software Level of Care: Express Care Visit Vital Signs Vital signs: Vital Signs Temperature 97.7 F 03/14/22 15:15 Pulse Rate 88 03/14/22 15:15 Respiratory Rate 20 03/14/22 15:15 Blood Pressure 142/93 H 03/14/22 15:15 Pulse Oximetry 97 03/14/22 15:15 Oxygen Delivery Room Air 03/14/22 15:15 Temperature 97.7 F 03/14/22 15:15 Pulse Rate 88 03/14/22 15:15 Respiratory Rate 20 03/14/22 15:15 Blood Pressure 142/93 H 03/14/22 15:15 Pulse Oximetry 97 03/14/22 15:15 Oxygen Delivery Room Air 03/14/22 15:15 Reviewed Procedures Ear Wax Removal Left Ear: Ear Wax Removal Date: 03/14/22 Cerumenolytic Used: other (hydrogen peroxide, warm water) Results: Re-examined: some cerumen remains (near TM) Ear Canal Exam: atraumatic Patient Tolerated Procedure: well and no complications Technique: ear canal irrigated and ear canal curetted Additional Comments: patient reported pain after mode
== END 2022-03-14 16:35 | disposition home or self-care (01) ==
PROVIDERS: Emergency Provider Nurse Practitioner Family; PCP Family Medicine
DX: K08.89 Other specified disorders of teeth and supporting structures (principal); H61.22 Impacted cerumen, left ear; I10 Essential (primary) hypertension; L40.9 Psoriasis, unspecified
CPT/HCPCS: 69210; 99213; G0463

== ENCOUNTER 2022-04-27 06:30 | Emergency (ER) | payer OTHER, BC, SELFPAY ==
--- NOTE | ~2022-04-27 | CT_ITS ---
EXAMINATION: CT cervical spine wo con DATE: 04/27/2022 07:03 INDICATION: Head injury. Neck injury. TECHNIQUE: Computed tomography (CT) of the cervical spine was performed without intravenous contrast. Automated exposure control and iterative reconstruction technique were employed. The dose-length pro duct was 442.40 mGy-cm. COMPARISON: None FINDINGS: There is 5 degrees dextrocurvature of cervical spine. There is hypolordosis of cervical spi ne. Vertebral body heights are normal. There is mildly decreased disc height at C7-T1. The following disc levels are specifically discussed: C2-C3: There is mild right uncovertebral joint osteoarthritis. There is no facet joint osteoarthritis . There is no neural foraminal stenosis. There is no central canal stenosis. C3-C4 through C6-C7: There is no uncovertebral joint osteoarthritis. There is no facet joint osteoart hritis. There is no neural foraminal stenosis. There is no central canal stenosis. C7-T1: There is no uncovertebral joint osteoarthritis. There is mild left facet joint osteoarthritis. There is no neural foraminal stenosis. There is no central canal stenosis. IMPRESSION: 1. No fracture. Reviewed, dictated and finalized at location A. TERM CARE ADMINISTRATOR IMPRESSION: 1. No fracture.
--- NOTE | ~2022-04-27 | CT_ITS ---
EXAMINATION: CT brain wo con DATE: 04/27/2022 07:03 INDICATION: Head injury. Syncope. TECHNIQUE: Computed tomography (CT) of the head was performed without intravenous contrast. The mA wa s adjusted according to patient size. Iterative reconstruction technique was employed. The dose-lengt h product was 605.33 mGy-cm. COMPARISON: None FINDINGS: There is no intracranial hemorrhage, acute infarction, or abnormal intracranial mass lesion . The ventricles are normal in size. The orbits are normal. There is mild mucosal thickening in the p aranasal sinuses. The mastoid air cells are normal. There is posterior scalp soft tissue swelling. IMPRESSION: 1. Normal brain. Reviewed, dictated and finalized at location A. DRIVER IMPRESSION: 1. Normal brain.
[2022-04-27 06:36] VITALS: BP 139/87; PULSE 88; RESP 22; TEMP 36.6; O2SAT 97
--- NOTE | 2022-04-27 06:40 | ED.FALL ---
HPI - Fall General Chief Complaint: Fall <Jostin Zapien MD - Last Filed: 05/01/22 18:55> Stated Complaint: Slipped in parking lot, hit head <Jostin Zapien MD - Last Filed: 05/01/22 18:55> Time Seen by Provider: 04/27/22 06:34 <Jostin Zapien MD - Last Filed: 05/01/22 18:55> History of Present Illness HPI Narrative: 37-year-old male presenting to the emergency department for evaluation after having a head injury. Patient was walking through the parking lot at a [employer] and slipped falling backwards and striking his head. Bystanders were concerned that the patient did have loss of consciousness. EMS was called and patient arrived to the emergency department in a c-collar. Patient's only complaint is headache. Patient denies any neck or back pain. Patient denies any other pain or injury. Patient does have a history of hypertension <Jostin Zapien MD - Last Filed: 05/01/22 18:55> Related Data Home Medications: Home Medications Medication Instructions Recorded Confirmed clobetasol 0.05 % topical ointment 1 applic topical DAILY 03/14/22 03/14/22 <Jostin Zapien MD - Last Filed: 05/01/22 18:55> Allergies/Adverse Reactions: Allergies Allergy/AdvReac Type Severity Reaction Status Date / Time No Known Allergies Allergy Unknown Verified 03/14/22 15:34 <Jostin Zapien MD - Last Filed: 05/01/22 18:55> Review of Systems Review of Systems: CONSTITUTIONAL: Denies fever, chills, or sweats. EYES: Denies visual changes, redness, or discharge. ENT: Denies rhinorrhea, congestion, sore throat, or otalgia. CARDIOVASCULAR: Denies chest pain, palpitations, or edema. RESPIRATORY: Denies cough or dyspnea. GASTROINTESTINAL: Denies abdominal pain, nausea, vomiting, or diarrhea. GENITOURINARY: Denies dysuria or hematuria. SKIN: Denies rash or itching. MUSCULOSKELETAL: Denies back pain, joint pain, or myalgia. NEUROLOGIC: Headache/posterior scalp pain, see HPI <Jostin Zapien MD - Last Filed: 05/01/22 18:55> PMFSH Past Medical History Medical History: Medical History HTN (hypertension) Psoriasis Psoriasis <Jostin Zapien MD - Last Filed: 05/01/22 18:55> Surgical History Surgical History: Surgical History No pertinent past surgical history <Jostin Zapien MD - Last Filed: 05/01/22 18:55> Family History Family History: Family History Father Diabetes mellitus Depression Hypertension Family history of cardiovascular disease Sibling Depression Hypertension Mother Family history of cardiovascular disease <Jostin Zapien MD - Last Filed: 05/01/22 18:55> Social History Social History: Social History Smoking status: Never smoker Second hand tobacco smoke exposure: Yes Alcohol intake: never Substance use: never Occupation/Education: occupation Gender identity (if verbalized by the patient): Male <Jostin Zapien MD - Last Filed: 05/01/22 18:55> Exam Narrative: APPEARANCE: Well appearing, no pain, no distress, well-nourished. HEAD: normocephalic, posterior contusion with no large hematoma EYES: PERRLA/EOMI, conjunctivae clear. NOSE: Normal no drainage EARS:TMS clear with good light reflex. NECK: Supple. No adenopathy, no masses. RESPIRATORY: Airway patent, respirations nonlabored. Clear to auscultation bilaterally, no rales, rhonchi, wheezing. CARDIOVASCULAR: Regular rate and rhythm without murmurs rubs or gallops. ABDOMINAL: Soft, nontender, nondistended, normal bowel sounds MUSCULOSKELETAL: Moves all extremities. Strength/ROM intact, No edema, No calf tenderness. No midline tenderness to cervical thoracic or lumbar spine. NEURO: Alert. Cranial nerves II through XII intact. Grossly intact SK
[2022-04-27 06:45] VITALS: BP 155/100; PULSE 82; RESP 19; O2SAT 98
[2022-04-27 07:15] VITALS: BP 148/98; PULSE 78; RESP 19; O2SAT 98
[2022-04-27 07:35] VITALS: BP 149/101; PULSE 83; RESP 17; O2SAT 97
== END 2022-04-27 07:36 | disposition home or self-care (01) ==
PROVIDERS: Emergency Provider Emergency Medicine; PCP Family Medicine
DX: S09.90XA Unspecified injury of head, initial encounter (principal); I10 Essential (primary) hypertension; W01.0XXA Fall on same level from slipping, tripping and stumbling without subsequent striking against object, initial encounter
CPT/HCPCS: 70450; 72125; 99284

== ENCOUNTER 2023-05-15 02:26 | Inpatient (IN) | payer BC, SELFPAY ==
[2023-05-15] VITALS (42 sets, daily range): BP systolic 125–168; BP diastolic 71–110; PULSE 79–99; RESP 12–26; TEMP 36.2–36.8; O2SAT 94–100; BMI 52.0
--- NOTE | ~2023-05-15 | XR_ITS ---
EXAMINATION: XR chest 2V DATE: 05/15/2023 03:14 INDICATION: Midsternal chest pain TECHNIQUE: PA and lateral views of the chest were obtained. COMPARISON: Chest radiograph dated 10/06/2021 FINDINGS: The lungs remain clear with no focal airspace opacities, pulmonary edema, pleural effusion or pneumot horax. The cardiomediastinal silhouette is normal. IMPRESSION: 1. No acute cardiopulmonary disease. Reviewed, dictated and finalized at location A. . MANAGER
--- NOTE | 2023-05-15 02:27 | ECG_ITS ---
Measurements Intervals [place] Rate: 95 P: 51 [place]: 155 QRS: 14 QRSD: 98 T: 75 QT: 346 QTc: 436 Interpretive Statements SINUS RHYTHM NONSPECIFIC ST & T-WAVE ABNORMALITY BORDERLINE ECG COMPARED TO ECG 10/06/2021 11:05:54 NO DIFFERENCE Electronically Signed On 05-15-2023 8:29:19 ATMOSPHERIC TECHNICIAN by Joshua Dorsey M.D.
[2023-05-15 02:49] LABS: Basophils Absolute Auto 0.1 K/mm3 (0.0-0.1); Basophils Percent Auto 0.7 % (0.2-1.2); Eosinophils Absolute Auto 0.3 K/mm3 (0-0.3); Eosinophils Percent Auto 3.1 % (0-4.4); Hematocrit 41.5 % (42.0-52.0); Hemoglobin 13.5 g/dL (14.0-18.0); Immature Granulocyte Absolute 0.04 K/mm3 (0.00-0.031); Immature Granulocyte Percent A 0.5 % (0-0.5); Lymphocytes Absolute Auto 2.35 K/mm3 (0.9-3.2); Lymphocytes Percent Auto 27.4 % (18.3-44.2); Mean Corpuscular HGB Conc 32.5 g/dl (32-36); Mean Corpuscular Hemoglobin 28.5 pg (26-34); Mean Corpuscular Volume 87.7 fl (80-100); Mean Platelet Volume 8.8 fl (7.4-10.4); Monocytes Absolute Auto 0.9 K/mm3 (0.1-0.6); Monocytes Percent Auto 9.9 % (2.6-8.5); Neutrophils Percent Auto 58.4 % (45.5-73.1); Platelet Count Result 293 k/mm3 (150-375); Red Blood Count 4.73 M/mm3 (4.6-6.20); Red Cell Distribution Width 13.3 % (11.5-14.5); White Blood Count 8.6 K/mm3 (4.5-10.0)
[2023-05-15 03:00] LABS: INR 1.1; Prothrombin Time 14.1 Seconds (11.1-14.7)
[2023-05-15 03:01] LABS: Partial Thromboplastin Time 31.3 SECONDS (22.3-36.8)
[2023-05-15 03:03] LABS: Alanine Aminotransferase 27 U/L (6-50); Albumin Level 4.3 g/dL (3.5-5.1); Alkaline Phosphatase 57 U/L (38-126); Anion Gap 9 mmol/L (8-16); Aspartate Amino Transferase 27 U/L (17-59); Bilirubin,Total 0.6 mg/dL (0.2-1.3); Blood Urea Nitrogen 17 mg/dL (9-20); Calcium 9.4 mg/dL (8.4-10.2); Carbon Dioxide 25 mmol/L (22-30); Chloride 102 mmol/L (98-107); Estimated CRCL calculation 139 ml/min; Estimated Glomerular Filt Rate > 60; Glucose 171 mg/dL (65-110); Lipase 89 U/L (23-300); Potassium 3.4 mmol/L (3.4-5.0); Sodium 136 mmol/L (137-145)
[2023-05-15 03:27] LABS: Troponin I 0.062 ng/mL (0.000-0.034)
[2023-05-15 04:52] LABS: NT Pro B Type Natriuretic Pept 34 pg/mL (19.9-100)
--- NOTE | 2023-05-15 04:52 | ED.GENADULT ---
HPI - General Adult General Chief complaint: Chest Pain Stated complaint: Chest Pain Time Seen by Provider: 05/15/23 03:41 History of Present Illness HPI narrative: This is a 38-year-old male ED chief complaint of chest pain. patient states 1:00 a.m. his woke sleep by pressure in the center chest radiates to left side of his chest. Is 3/10 intensity constant. He has never had pain like this before. Improved he rested there are no exacerbating symptoms. There is no diaphoresis nausea vomiting or exertional component. No shortness of. Patient does have edema of the lower extremities right worse than left. Related Data Home Medications Medication Instructions Recorded Confirmed clobetasol 0.05 % topical ointment 1 applic topical DAILY 03/14/22 03/14/22 Allergies Allergy/AdvReac Type Severity Reaction Status Date / Time No Known Allergies Allergy Unknown Verified 03/14/22 15:34 [facility] Past Medical History Medical History HTN (hypertension) Psoriasis Psoriasis Surgical History Surgical History No pertinent past surgical history Family History Family History Father Diabetes mellitus Depression Hypertension Family history of cardiovascular disease Sibling Depression Hypertension Mother Family history of cardiovascular disease Social History Social History Smoking status: Never smoker Second hand tobacco smoke exposure: Yes Alcohol intake: never Substance use: never Occupation/Education: occupation Gender identity (if verbalized by the patient): Male Exam Narrative: APPEARANCE: No apparent distress. Head: atraumatic. EYES: EOMI, NOSE: Atraumatic NECK: Trachea midline RESPIRATORY: No increased rate of breathing, CTAB CARDIOVASCULAR: RRR, Pitting edema in lower extremities right > left ABDOMINAL: Non-distended MUSCULOSKELETAl: No obvious deformities NEURO: Alert. Moving 4/4 extremities SKIN:: Warm, dry. Normal color PSYCHIATRIC: Normal affect Course Vital Signs Vital signs: Vital Signs Temperature 97.8 F 05/15/23 02:41 Pulse Rate 93 05/15/23 02:41 Respiratory Rate 20 05/15/23 02:41 Blood Pressure 155/98 H 05/15/23 02:41 Pulse Oximetry 98 05/15/23 02:41 Oxygen Delivery Room Air 05/15/23 02:41 Temperature 97.8 F 05/15/23 02:41 Pulse Rate 97 05/15/23 06:01 Respiratory Rate 17 05/15/23 06:00 Blood Pressure 131/76 05/15/23 06:01 Pulse Oximetry 97 05/15/23 06:01 Oxygen Delivery Room Air 05/15/23 03:40 Medical Decision Making [facility] Narrative Medical decision making narrative: -Course: 38-year-old male presenting with chest pain. Found to have NSTEMI. Patient be admitted the IMU for further management. -DDX includes but is not limited to: ACS, embolism, aortic dissection, PNA, PTX -Co-morbidities complicating care: hypertension, psoriasis -Social determinants of health: works at [employer] with mom and dad -Independent interpretation of studies: CBC normal. Metabolic panel unremarkable. troponin 0.062. -> .152 BNP 34 Chest x-ray normal. Independent EKG interpretation: Rhythm [sinus], Rate [95], [place] -[normal], [place] -[normal], QRS [narrow], QTC [normal], T waves -[negative for concerning inversions], ST Segments - [Negative for concerning elevations] Final interpretations: [Normal Sinus Rhythm] -Discussion of Management/Consultants:Dipesh - HospitalistMaki - Cardiology -Interventions:Nitro SL, ASA, metoprolol, Lipitor, morphine, oxygen -Shared decision making / Disposition: admitted Vital Signs Vital Signs: Vital Signs Temperature 97.8 F 05/15/23 02:41 Pulse Rate 93 05/15/23 02:41 Respiratory Rate 20 05/15/23 02:41 Blood Pressure 155/98 H 05/15/23 02:41 Pulse Oximetry
[2023-05-15] MEDS: ASPIRIN 81 MG CHEWABLE TABLET 324 MG PO (05:46)
[2023-05-15] MEDS: NITROGLYCERIN SL 0.4 MG TABLET SUBLINGUAL (05:46)
[2023-05-15 05:53] LABS: D Dimer 0.38 ug/mL (<0.48)
[2023-05-15 06:14] LABS: Troponin I 0.152 ng/mL (0.000-0.034)
--- NOTE | 2023-05-15 06:15 | ECHO_ITS ---
Patient Info Name: Drew Mendes Age: 38 years : 1985 Gender: Male Ht: 63 in Wt: 310 lbs BSA: 2.59 m2 HR: 61 bpm BP: 129 / 92 mmHg Heart Rhythm: Sinus Rhythm Technical Quality: Good Exam Date: 05/15/2023 1:35 PM Exam Location: Echo Lab Patient Status: Inpatient Admit Date: 05/15/2023 Staff Ordering Physician: Geovanni Wilcox MD Senior Estimator: John Paul De Los Santos RDCS Attending Provider: Mark Carey MD Referring Physician: Brenden CHOPRA; Exam Type: CA echo doppler color flow Study Info Indications - NSTEMI Complete two-dimensional, color flow and Doppler transthoracic echocardiogram is performed. Summary 1. Complete two-dimensional, color flow and Doppler transthoracic echocardiogram is performed. 2. Technically challenging echocardiogram quality because of obesity. 3. Normal appearing left ventricular size with grossly normal LV function. 4. Grade 1 diastolic noncompliance. 5. Trivial mitral regurgitation. Left Ventricle Left ventricular chamber dimension is normal. Left ventricular systolic function is normal, estimated at 60-65%. The left ventricular diastolic function is grade I diastolic dysfunction. Right Ventricle Right ventricular chamber dimension is normal. Left Atria Left atrial chamber dimension is normal. Right Atria Right atrial chamber dimension is normal. Aortic Valve The aortic valve is normal. Pulmonic Valve The pulmonic valve is not well visualized. Mitral Valve The mitral valve has normal leaflets. Tricuspid Valve The tricuspid valve leaflets are not well visualized. Pericardium/Pleural The pericardium appears normal. Aorta The aortic root size at the sinus of Valsalva is normal. Left Ventricular Outflow Tract Name Value Normal LVOT 2D LVOT Diameter 1.9 cm LVOT Doppler LVOT Peak Gradient 6 mmHg LVOT Mean Gradient 3 mmHg LVOT VTI 29 cm LVOT VTI/AV VTI Ratio 1.1 LVOT Stroke Volume 86 ml LVOT CO 6.8 l/min LVOT CI 2.6 l/min/m2 Pulmonic Valve Name Value Normal RVOT Doppler RVOT Peak Gradient 4 mmHg PV Doppler PV Peak Gradient 7 mmHg Mitral Valve Name Value Normal MV Doppler MV Decel [place] 497 cm/s2 MV PHT 58 ms MV Area (PHT) 3.8 cm2 4.0-5.0 MV Regurgitation Doppler
[2023-05-15] MEDS: HEPARIN SOD/D5W 100 UNITS/ML 25,000 UNITS/250 ML BAG 10 UNITS IV CONT (06:57)
[2023-05-15] MEDS: HEPARIN SODIUM 5,000 UNITS/ML VIAL 4000 UNITS IV PUSH ×3 (06:57→21:19)
[2023-05-15] MEDS: METOPROLOL TARTRATE INJ 5 MG/5 ML VIAL IV PUSH (07:38)
--- NOTE | 2023-05-15 08:50 | ECG_ITS ---
Measurements Intervals [place] Rate: 90 P: 46 [place]: 160 QRS: 6 QRSD: 89 T: 59 QT: 351 QTc: 430 Interpretive Statements SINUS RHYTHM NONSPECIFIC ST & T-WAVE ABNORMALITY BORDERLINE ECG COMPARED TO ECG 05/15/2023 02:31:17 NO SIGNIFICANT CHANGES Electronically Signed On 05-15-2023 19:11:22 MARINE SERVICES TECHNICIAN by Joshua Dorsey M.D.
--- NOTE | 2023-05-15 09:08 | ECG_ITS ---
Measurements Intervals [place] Rate: 81 P: 30 NH: 146 QRS: 5 QRSD: 83 T: 47 QT: 360 QTc: 419 Interpretive Statements SINUS RHYTHM NONSPECIFIC T-WAVE ABNORMALITY COMPARED TO ECG 05/15/2023 05:39:58 NO SIGNIFICANT CHANGES Electronically Signed On 05-17-2023 18:18:26 [employer] by Jeffery Pelaez M.D.
[2023-05-15 09:11] LABS: Basophils Absolute Auto 0.1 K/mm3 (0.0-0.1); Basophils Percent Auto 0.7 % (0.2-1.2); Eosinophils Absolute Auto 0.2 K/mm3 (0-0.3); Eosinophils Percent Auto 1.9 % (0-4.4); Hematocrit 39.6 % (42.0-52.0); Hemoglobin 13.1 g/dL (14.0-18.0); Immature Granulocyte Absolute 0.06 K/mm3 (0.00-0.031); Immature Granulocyte Percent A 0.6 % (0-0.5); Lymphocytes Absolute Auto 2.05 K/mm3 (0.9-3.2); Lymphocytes Percent Auto 21.2 % (18.3-44.2); Mean Corpuscular HGB Conc 33.1 g/dl (32-36); Mean Corpuscular Hemoglobin 28.6 pg (26-34); Mean Corpuscular Volume 86.5 fl (80-100); Mean Platelet Volume 8.6 fl (7.4-10.4); Monocytes Absolute Auto 0.7 K/mm3 (0.1-0.6); Monocytes Percent Auto 6.9 % (2.6-8.5); Neutrophils Absolute Auto 6.7 K/mm3 (1.3-6.7); Neutrophils Percent Auto 68.7 % (45.5-73.1); Platelet Count Result 287 k/mm3 (150-375); Red Blood Count 4.58 M/mm3 (4.6-6.20); Red Cell Distribution Width 13.2 % (11.5-14.5); White Blood Count 9.7 K/mm3 (4.5-10.0)
[2023-05-15 09:25] LABS: Cholesterol 201 mg/dL (0-200); HDL Direct 30 mg/dL; Triglycerides 93 mg/dL (<150)
[2023-05-15 09:29] LABS: INR 1.1; Prothrombin Time 14.4 Seconds (11.1-14.7)
[2023-05-15 09:31] LABS: Partial Thromboplastin Time 44.4 SECONDS (22.3-36.8)
[2023-05-15 09:36] LABS: LDL Cholesterol Direct 150 mg/dL
[2023-05-15 09:39] LABS: Troponin I 0.819 ng/mL (0.000-0.034)
--- NOTE | 2023-05-15 09:44 | PC.NURSE ---
CALL OUT TO DR PARHAM TO INFORM OF INCREASED TROPONIN
--- NOTE | 2023-05-15 10:01 | PC.NURSE ---
SPOKE TO DIONE, NO NEW ORDERS
[2023-05-15] MEDS: METOPROLOL TARTRATE 25 MG TABLET PO ×2 (10:20→21:19)
[2023-05-15] MEDS: ATORVASTATIN 40 MG TABLET PO (10:20)
--- NOTE | 2023-05-15 13:17 | PM.IMHP ---
H&P: HPI History of Present Illness Date/Time: 05/15/23 13:17 Chief Complaint: Chest pain Narrative: 38yo male with HTN and psoriasis here for chest pain. Patient was awaken this morning at 1am from sleep due to chest pain described ans 'prssure' with lsight radiation to the left chest but not to the back, arms or neck. No diaphoresis, SOB, dizziness, nausea or lightheadedness. Pain was rated 3/10. The pain was not pleuritic, palpable or positional. Over the years he has had dyspnea on exertion and mild chest discomfort when he over exerts himself but the chest pain this morning was different than prior. He has not had any symptoms of increasing dyspnea on exertion. He is a nonsmoker. He has hypertension but no tobacco use, hyperlipidemia or diabetes. His father had coronary disease in his 40s. Been no changes in his medications. On his way to the emergency room, patient's chest pain he was began to ease off. He received nitroglycerin in the emergency room but was unsure of this was helpful. Emergency room, blood pressure was elevated at 150 5/98 otherwise his vital signs were stable. EKG showed normal sinus rhythm with nonspecific ST-T wave changes. Chest x-ray was clear. CBC, PT, PTT and D-dimer were essentially normal. CMP was normal except for a sodium 136 and a glucose of 171. Cholesterol was 201 with LDL 150 and HDL 30. Was given aspirin and SL nitroglycerin. IV metoprolol was given once. Was started on heparin drip. He was admitted for further care. Review of Systems Review of Systems: All systems reviewed & are unremarkable except as noted in HPI and below [facility] Past Medical History Medical History (Updated 05/15/23 @ 13:41 by Pipe Young MD) HTN (hypertension) Morbid obesity Psoriasis Surgical History Surgical History (Updated 05/15/23 @ 13:25 by Pipe Young MD) H/O toe surgery Family History Family History Father Diabetes mellitus Depression Hypertension Family history of cardiovascular disease Sibling Depression Hypertension Mother Family history of cardiovascular disease Social History Social History (Updated 05/15/23 @ 13:27 by Pipe Young MD) Social History: No history of tobacco. Smokes marijuana once every other weekend. No history of alcohol use. No history of IV drug use. Lives at home with his mother, father, sister and nephew. He nominates his sister to be the individual would make medical decisions for him if h is unable. He is full code. Smoking status: Never smoker Second hand tobacco smoke exposure: Yes Alcohol intake: never Substance use: never Occupation/Education: occupation Gender identity (if verbalized by the patient): Male Meds Home Medications and Allergies Home Medications Medication Instructions Recorded Confirmed Type clobetasol 0.05 % topical ointment 1 applic topical DAILY 03/14/22 03/14/22 History ibuprofen 800 mg tablet 800 mg PO TID PRN pain #15 tabs 03/14/22 Rx penicillin V potassium 500 mg 500 mg PO Q12H 7 days #14 tabs 03/14/22 Rx tablet lisinopril 10 1 tablet PO DAILY #90 tabs 09/28/22 Rx mg-hydrochlorothiazide 12.5 mg tablet Allergies Allergy/AdvReac Type Severity Reaction Status Date / Time No Known Allergies Allergy Unknown Verified 03/14/22 15:34 Vital Signs Vital Signs - 24 hr 05/15/23 02:41 05/15/23 03:40 05/15/23 03:40 Temperature 97.8 F Pulse Rate 93 97 Respiratory Rate 20 Blood Pressure 155/98 H Pulse Oximetry 98 98 Oxygen Delivery Room Air Room Air 05/15/23 03:37 05/15/23 03:38 05/15/23 03:50 Temperature Pulse Rate 94 Respiratory Rate 12 Blood Pressure 168/110 H Pulse Oximetry 97 98 96 Oxygen Delivery 05/15/23 04:00 05/15/23 04:35 05/15/23 05:01 Temperature Pulse Rate 93 96 89 Respiratory Rate 14 20 22 H Blood Pressure 148/100 H Pulse Oximetry 97 96 94
[2023-05-15 14:12] LABS: Partial Thromboplastin Time 31.7 SECONDS (22.3-36.8)
--- NOTE | 2023-05-15 14:48 | ADMGEN ---
This patient, Drew Mendes, was admitted to IMU Room 205-02. Patient/family oriented to hospital policies and general routines including ID bracelet, bed and alarms, visiting hours, pain management, procedures, bathroom and other care routines, personal items, smoking policy, room service/diet, and visiting hours. Information on how to activate the Rapid Response Team has been discussed. Patient/Family are encouraged to report perceived risks to care and to ask questions if they do not understand what they are told or what they should do.
--- NOTE | 2023-05-15 17:10 | PM.CNCAR ---
Assessment and Plan Assessment and plan (1) Non-ST elevation AK (NSTEMI): Code(s): I21.4 - Non-ST elevation (NSTEMI) myocardial infarction Status: Acute Plan This is a 38-year-old man with hypertension and morbid obesity presenting with acute coronary syndrome/non ST elevation AK. At the moment he is stable and has been treated with aspirin, anticoagulation, beta-blockers and statins. If he remains stable in this fashion we will plan on proceeding with coronary angiography on Wednesday. If he has recurrent symptoms of ischemic pain or and or destabilize is in some fashion with proceed urgently earlier than that.Thank you for this interesting consultation in this unfortunate young man Joshua Dorsey MD [facility] History of Present Illness History of Present Illness Consult date/time: 05/15/23 17:10 Reason For Visit: STEMI Narrative: This is a 38-year-old man I am seeing at the request of the hospitalist because of non ST elevation AK. The patient is unknown to me prior to this encounter he is very pleasant gentleman who came to the emergency room in the middle of the night because of chest pain. He states his awakened from sleep at about 1:00 a.m. in the morning he described as a dull retrosternal pressure-like sensation that was not associated with any other symptoms nor any radiation to any other location in his body. He recalls that his father has history of premature coronary disease so when this symptom had been going on for about an hour without relief he decided to come to the emergency room and be evaluated. Apparently shortly after arriving here before receiving any real treatment his symptoms gradually resolved or at least improved he states they totally resolved after he received some sublingual nitroglycerin and aspirin. He has been feeling fine since then he spent the rest of the night and in late early this evening in the ER waiting for a bed upstairs. He feels well at this time and is only complaint is being hungry. His electrocardiograms do not show any evidence of acute injury or ischemia but his troponin levels did rise up to 2.0 indicating obvious evidence of an acute myocardial injury. He has a history of hypertension for which he takes lisinopril but no other known medical problems specifically denies dyslipidemia diabetes or cigarette smoking. He is morbidly obese with a BMI of 52.1. He has been admitted to the IMU and is on a heparin drip he has received orders for aspirin beta-blockers and statins. Review of Systems Constitutional: Constitutional: Reports no additional constitutional complaints Eyes: Eyes: Reports no additional eye complaints ENT: Reports system reviewed and no additional complaints, except as documented Cardiovascular: Cardiovascular: Reports no additional cardiovascular complaints Respiratory: Respiratory: Reports no additional respiratory complaints Gastrointestinal: Gastrointestinal: Reports no additional gastrointestinal complaints Musculoskeletal: Musculoskeletal: Reports no additional musculoskeletal complaints Integumentary/Breasts: Skin/Breast: Reports system reviewed and no additional complaints, except as docu Neurologic: Reports system reviewed and no additional complaints, except as documented Endocrine: Endocrine: Reports no additional endocrine complaints Hematologic/Lymphatic: Hematologic/Lymphatic: Reports no additional hematologic/lymphatic complaints Allergic/Immunologic: Allergic/Immunologic: Reports no additional allergic/immunologic complaints PMFSH Past Medical History Medical History (Updated 05/15/23 @ 13:41 by Pipe Young MD) HTN (hypertension) Morbid obesity Psoriasis Surgical History Surgical History (Updated 05/15/23 @ 13:25 by Pipe Young MD) H/O toe surgery Family History Family History Father Diabetes mellitus Depression Hypertension Family history of
[2023-05-15 17:35] LABS: Glucose Point of Care 105 mg/dl (65-105)
[2023-05-15 19:56] LABS: Glucose Point of Care 156 mg/dl (65-105)
[2023-05-15 20:53] LABS: Partial Thromboplastin Time 36.5 SECONDS (22.3-36.8)
[2023-05-16] VITALS (18 sets, daily range): BP systolic 125–155; BP diastolic 71–99; PULSE 80–101; RESP 17–18; TEMP 36.3–36.9; O2SAT 97–98
[2023-05-16] MEDS: HEPARIN SOD/D5W 100 UNITS/ML 25,000 UNITS/250 ML BAG 18 UNITS IV CONT (00:43)
[2023-05-16 04:35] LABS: Alanine Aminotransferase 25 U/L (6-50); Alkaline Phosphatase 59 U/L (38-126); Anion Gap 5 mmol/L (8-16); Aspartate Amino Transferase 30 U/L (17-59); Bilirubin,Total 0.8 mg/dL (0.2-1.3); Blood Urea Nitrogen 10 mg/dL (9-20); Calcium 9.1 mg/dL (8.4-10.2); Carbon Dioxide 28 mmol/L (22-30); Chloride 103 mmol/L (98-107); Estimated CRCL calculation 154 ml/min; Estimated Glomerular Filt Rate > 60; Glucose 118 mg/dL (65-110); Potassium 3.7 mmol/L (3.4-5.0); Sodium 136 mmol/L (137-145)
[2023-05-16 04:41] LABS: Basophils Absolute Auto 0.1 K/mm3 (0.0-0.1); Basophils Percent Auto 0.8 % (0.2-1.2); Eosinophils Absolute Auto 0.2 K/mm3 (0-0.3); Eosinophils Percent Auto 2.5 % (0-4.4); Hematocrit 41.5 % (42.0-52.0); Hemoglobin 13.4 g/dL (14.0-18.0); Immature Granulocyte Absolute 0.05 K/mm3 (0.00-0.031); Immature Granulocyte Percent A 0.5 % (0-0.5); Lymphocytes Percent Auto 23.7 % (18.3-44.2); Mean Corpuscular HGB Conc 32.3 g/dl (32-36); Mean Corpuscular Hemoglobin 28.3 pg (26-34); Mean Corpuscular Volume 87.7 fl (80-100); Monocytes Absolute Auto 0.8 K/mm3 (0.1-0.6); Monocytes Percent Auto 8.9 % (2.6-8.5); Neutrophils Absolute Auto 5.9 K/mm3 (1.3-6.7); Neutrophils Percent Auto 63.6 % (45.5-73.1); Platelet Count Result 258 k/mm3 (150-375); Red Blood Count 4.73 M/mm3 (4.6-6.20); Red Cell Distribution Width 13.3 % (11.5-14.5); White Blood Count 9.3 K/mm3 (4.5-10.0)
[2023-05-16 04:45] LABS: Partial Thromboplastin Time 50.7 SECONDS (22.3-36.8)
[2023-05-16] MEDS: HEPARIN SODIUM 5,000 UNITS/ML VIAL 4000 UNITS IV PUSH (05:03)
[2023-05-16 07:45] LABS: Glucose Point of Care 103 mg/dl (65-105)
[2023-05-16] MEDS: ATORVASTATIN 40 MG TABLET PO (09:09)
[2023-05-16] MEDS: ASPIRIN 81 MG CHEWABLE TABLET PO (09:09)
[2023-05-16] MEDS: METOPROLOL TARTRATE 25 MG TABLET PO ×2 (09:10→20:18)
--- NOTE | 2023-05-16 10:56 | PM.PNCARD ---
Progress Note: A&P Assessment and Plan (1) Non-ST elevation [place] (NSTEMI): Code(s): I21.4 - Non-ST elevation (NSTEMI) myocardial infarction Status: Acute Plan 38-year-old man with: Acute coronary syndrome/non ST elevation OR. His exam cardiovascular samaniego is unremarkable. He is morbidly obese but has otherwise only hypertension as a significant coronary risk factor as well as family history of premature disease in his father. Plans for angiography tomorrow. Obviously for treatment recommendations will be contingent on this finding Joshua Dorsey MD [facility] Subjective Date/time seen: Date of service: 05/16/23 10:56 Interval history: Follow-up visit in this 38-year-old man with: Acute coronary syndrome/non ST elevation OR. Patient has been stabilized medically and is asymptomatic. Plans for catheterization tomorrow reviewed again P has no questions. Principal comorbidities morbid obesity Exam Const: General: comfortable and no acute distress Other: Pleasant morbidly obese young man no distress HENMT: Mouth: Yes moist mucous membranes Eyes: Sclera: sclerae normal Neck: Neck: supple and no JVD Resp: Effort & Inspection: normal respiratory effort Auscultation: clear to auscultation bilaterally Other: Breath sounds are clear but distant given his body habitus Cardio: Rate: regular rate Rhythm: regular rhythm GI: GI Palp: Yes Soft to palpation Auscultation: normal bowel sounds Skin: General skin exam: normal color Neuro: Other: Alert and oriented x3 Objective Data Vital Signs Vital Signs: Vital Signs - 24 hr 05/15/23 11:15 05/15/23 11:00 05/15/23 13:00 Temperature Pulse Rate 94 87 81 Respiratory Rate 26 H Blood Pressure Pulse Oximetry 98 Oxygen Delivery 05/15/23 14:07 05/15/23 14:26 05/15/23 17:12 Temperature 36.8 C 36.6 C Pulse Rate 84 86 88 Respiratory Rate 21 H 16 Blood Pressure 146/90 H 136/81 Pulse Oximetry 95 96 Oxygen Delivery 05/15/23 16:00 05/15/23 18:00 05/15/23 20:00 Temperature 36.7 C Pulse Rate 90 92 93 Respiratory Rate 16 Blood Pressure 141/86 H Pulse Oximetry 96 Oxygen Delivery 05/15/23 21:19 05/15/23 21:20 05/15/23 23:03 Temperature 36.2 C L Pulse Rate 92 85 Respiratory Rate 16 Blood Pressure 125/71 Pulse Oximetry 96 Oxygen Delivery Room Air 05/15/23 23:00 05/15/23 20:00 05/15/23 22:00 Temperature Pulse Rate 99 91 Respiratory Rate Blood Pressure Pulse Oximetry Oxygen Delivery Room Air 05/16/23 00:00 05/16/23 02:00 05/16/23 00:00 Temperature Pulse Rate 82 97 Respiratory Rate Blood Pressure 125/71 Pulse Oximetry Oxygen Delivery 05/16/23 03:53 05/16/23 03:56 05/16/23 04:00 Temperature 36.3 C L Pulse Rate 91 85 Respiratory Rate 18 Blood Pressure 155/93 H Pulse Oximetry 98 Oxygen Delivery Room Air 05/16/23 06:00 05/16/23 07:56 05/16/23 09:10 Temperature 36.6 C Pulse Rate 85 89 95 Respiratory Rate 17 Blood Pressure 130/83 Pulse Oximetry 97 Oxygen Delivery 05/16/23 08:00 05/16/23 10:00 Temperature Pulse Rate 101 H 89 Respiratory Rate Blood Pressure Pulse Oximetry Oxygen Delivery Intake/Output Intake/Output: Intake & Output 05/13/23 05/14/23 05/15/23 05/16/23 23:59 23:59 23:59 23:59 Intake Total 120 920 Output Total 1025 1900 Balance -909 -117 Meds/Results Medications: Active Medications Generic Name Dose Route Start Last Admin Trade Name Freq PRN Reason Stop Dose Admin Aspirin 81 mg 05/16/23 08:00 05/16/23 09:09 Aspirin 81 Mg Chewable Tablet PO 81 mg DAILY@0800 [place] Administration Atorvastatin Calcium 40 mg 05/15/23 09:00 05/16/23 09:09 Atorvastatin 40 Mg Tablet PO 40 mg DAILY [place] Administration Dextrose 12.5 gm 05/15/23 13:39 Dextrose 50% 25 Gm/50 Ml Syringe IV PUSH PRN PRN Hypoglycemia Protocol Glucag
[2023-05-16 11:22] LABS: Partial Thromboplastin Time 105.4 SECONDS (22.3-36.8)
[2023-05-16 12:07] LABS: Glucose Point of Care 133 mg/dl (65-105)
--- NOTE | 2023-05-16 14:27 | PM.IMPN ---
Progress Note: A&P Assessment and Plan (1) Non-ST elevation [place] (NSTEMI): Code(s): I21.4 - Non-ST elevation (NSTEMI) myocardial infarction Status: Acute Assessment and Plan: Patient presents with chest pain. He works at [email or web address] but does not do heavy lifting or other strenuous activity. Does not appear that he has had any prodromal symptoms prior to the onset of the chest pain this morning. Atypical presentation but troponin are elevated making it concerning for underlying coronary disease. EKG showing nonspecific ST T wave changes but no change from 2021.Repeat EKG shows very similar findings. Consider pericarditis but does not fit his symptoms. PE unlikely since no risk factors, no tachycardia and no hypoxia. Echo showing EF 60-65%, grade I diastolic dysfunction. Cardiology consulted Continue ASA, metoprolol and lipitor. Continue Heparin drip Plan for LHC in the morning (2) HTN (hypertension): Qualifiers: Hypertension type: essential hypertension Qualified Code(s): I10 - Essential (primary) hypertension Code(s): I10 - Essential (primary) hypertension Status: Acute Assessment and Plan: Patient has a history of hypertension and is on lisinopril/HCTZ chronically. Chart review shows blood pressure is reasonably well controlled. IV metoprolol given x1 in the ED and started on scheduled metoprolol. Monitor blood pressure and adjust medications accordingly. (3) Hyperlipidemia: Code(s): E78.5 - Hyperlipidemia, unspecified Status: Acute Assessment and Plan: Cholesterol 201 with LDL 150 and HDL 30. LFTs normal. Lipitor started. (4) Hyperglycemia: Code(s): R73.9 - Hyperglycemia, unspecified Status: Acute Assessment and Plan: Glucose was 171 on admission. Most likely this was fasting. He may have underlying diabetes. A1c 6.0. The patient's blood glucose was reviewed on 05/16 Glucose remains well controlled. Continue AccuCheks covering with sliding scale. Hypoglycemia protocol available as needed. Continue to monitor (5) Psoriasis: Code(s): L40.9 - Psoriasis, unspecified Status: Acute Assessment and Plan: Patient with psoriasis but does not appear to be well controlled. Continue clobetasol ointment (6) Morbid obesity: Code(s): E66.01 - Morbid (severe) obesity due to excess calories Status: Acute Assessment and Plan: BMI 53. Healthy lifestyle choices recommended. Plan DVT prophylaxis -heparin Code status -full Subjective Date/time seen: 05/16/23 14:27 Interval history: 38yo male with HTN and psoriasis here for chest pain.? No further episodes of chest pain. No SOB. Walking to the BR. Eating normally. Exam Narrative: AF 97.8 136/82 83 17 97% ra Gen - NARD Chest - lungs are clear to auscultation bilaterally. No wheezes or crackles. CV - RRR. S1-S2. Tele showing no significant dysrhythmias Abd - Soft. Nontender. Obese. Positive bowel sounds. Ext - Trace pedal edema. Neuro - nonfocal Psych - normal mood and affect. Skin - warm and dry. psoriatic plaques noted Objective Data Vital Signs Vital Signs: Vital Signs - 24 hr 05/15/23 17:12 05/15/23 16:00 05/15/23 18:00 Temperature 97.9 F Pulse Rate 88 90 92 Respiratory Rate 16 Blood Pressure 136/81 Pulse Oximetry 96 Oxygen Delivery 05/15/23 20:00 05/15/23 21:19 05/15/23 21:20 Temperature 98.0 F Pulse Rate 93 92 Respiratory Rate 16 Blood Pressure 141/86 H Pulse Oximetry 96 Oxygen Delivery Room Air 05/15/23 23:03 05/15/23 23:00 05/15/23 20:00 Temperature 97.1 F L Pulse Rate 85 99 Respiratory Rate 16 Blood Pressure 125/71 Pulse Oximetry 96 Oxygen Delivery Room Air 05/15/23 22:00 05/16/23 00:00 05/16/23 02:00 Temperature Pulse Rate 91 82 97 Respiratory Rate Blood Pressure Pulse Oximetry Oxygen Delivery
[2023-05-16] MEDS: HEPARIN SOD/D5W 100 UNITS/ML 25,000 UNITS/250 ML BAG 22 UNITS IV CONT (15:55)
[2023-05-16] MEDS: CLOBETASOL PROPIONATE 0.05% OINT 30 GM 1 APPLIC TOPICAL (16:03)
[2023-05-16 16:42] LABS: Glucose Point of Care 93 mg/dl (65-105)
[2023-05-16 17:44] LABS: Partial Thromboplastin Time 61.5 SECONDS (22.3-36.8)
[2023-05-16] MEDS: HEPARIN SODIUM 5,000 UNITS/ML VIAL 3500 UNITS IV PUSH (18:44)
[2023-05-16 20:20] LABS: Glucose Point of Care 127 mg/dl (65-105)
[2023-05-17] VITALS (34 sets, daily range): BP systolic 108–169; BP diastolic 49–99; PULSE 73–96; RESP 10–23; TEMP 35.6–36.9; O2SAT 92–99
[2023-05-17] MEDS: HEPARIN SOD/D5W 100 UNITS/ML 25,000 UNITS/250 ML BAG 24 UNITS IV CONT (01:16)
[2023-05-17 01:39] LABS: Partial Thromboplastin Time 89.6 SECONDS (22.3-36.8)
--- NOTE | 2023-05-17 05:55 | PCRCNOTE ---
Apnea Link incomplete. Evaluation period too short.
[2023-05-17 07:26] LABS: Partial Thromboplastin Time 74.6 SECONDS (22.3-36.8)
[2023-05-17 07:54] LABS: Glucose Point of Care 129 mg/dl (65-105)
[2023-05-17] MEDS: ATORVASTATIN 40 MG TABLET PO (08:14)
[2023-05-17] MEDS: ASPIRIN 81 MG CHEWABLE TABLET PO (08:14)
[2023-05-17] MEDS: METOPROLOL TARTRATE 25 MG TABLET PO ×2 (08:14→20:30)
--- NOTE | 2023-05-17 09:01 | PC.NURSE ---
Patient off floor to vp lab.
--- NOTE | 2023-05-17 09:34 | WPDMODSED ---
Moderate Sedation Note-Pt Data Patient Data Diagnosis: Non ST-elevation GA Present Complaint: no complaints/chest pain upon admission Procedure to be performed/Plan: left heart catheterization Allergies Allergy/AdvReac Type Severity Reaction Status Date / Time No Known Allergies Allergy Unknown Verified 03/14/22 15:34 Home Medications Medication Instructions Recorded Confirmed Type clobetasol 0.05 % topical ointment 1 applic topical DAILY PRN 03/14/22 05/15/23 History psoriasis lisinopril 10 1 tablet PO DAILY #90 tabs 09/28/22 05/15/23 Rx mg-hydrochlorothiazide 12.5 mg tablet Current Medications: Active Medications Aspirin (Aspirin 81 Mg Chewable Tablet) 81 mg PO DAILY@0800 [facility] Last Admin: 05/17/23 08:14 Dose: 81 mg Atorvastatin Calcium (Atorvastatin 40 Mg Tablet) 40 mg PO DAILY [facility] Last Admin: 05/17/23 08:14 Dose: 40 mg Clobetasol Propionate (Clobetasol Propionate 0.05% Oint 30 Gm) 1 applic TOPICAL DAILY PRN PRN Reason: psoriasis Last Admin: 05/16/23 16:03 Dose: 1 applic Dextrose (Dextrose 50% 25 Gm/50 Ml Syringe) 12.5 gm IV PUSH PRN PRN; Protocol PRN Reason: Hypoglycemia Glucagon (Glucagon For Inj 1 Mg Vial) 1 mg IM PRN PRN; Protocol PRN Reason: Hypoglycemia Glucose (Glucose Oral Gel 15 Gm Of Glucse In 37.5 Gm Tube) 15 gm PO PRN PRN; Protocol PRN Reason: Hypoglycemia Heparin Sodium (Porcine) (Heparin Sodium 5,000 Units/Ml Vial) 4,000 units IV PUSH PRN PRN PRN Reason: aPTT less than 55 seconds Last Admin: 05/16/23 05:03 Dose: 4,000 units Heparin Sodium (Porcine) (Heparin Sodium 5,000 Units/Ml Vial) 3,500 units IV PUSH PRN PRN PRN Reason: aPTT 55 - 70 seconds Last Admin: 05/16/23 18:44 Dose: 3,500 units Heparin Sodium/Dextrose (Heparin Sodium/D5w 100 Units/Ml) 25,000 units in 250 mls @ 24 mls/hr IV CONT .[id number] [facility]; Protocol Last Titration: 05/17/23 07:51 Dose: 2,400 units/hr, 24 mls/hr Dextrose (Dextrose 5% 1,000 Ml) 1,000 mls @ 100 mls/hr IVPB PRN PRN; Protocol PRN Reason: Hypoglycemia Insulin Aspart (Insulin Aspart (*Bkc) 100 Units/Ml) 3 - 6 units SUB-Q TIDWM [place]; Protocol Last Admin: 05/17/23 07:51 Dose: Not Given Metoprolol Tartrate (Metoprolol Tartrate 25 Mg Tablet) 25 mg PO Q12HR [place] Last Admin: 05/17/23 08:14 Dose: 25 mg Perflutren Lipid Microsphere (Perflutren Lipid Microspheres 1.5 Ml Vial Diluted To 10 Ml Total Volume) 0 ml IV PUSH ONCE PRN; Protocol PRN Reason: adequate visualization Stop: 05/18/23 06:15 Sedation/Anesthesia: No previous sedation/anesthesia problems (including family history). [facility] Past Medical History Medical History (Updated 05/15/23 @ 13:41 by Pipe Young MD) HTN (hypertension) Morbid obesity Psoriasis Surgical History Surgical History (Updated 05/15/23 @ 13:25 by Pipe Young MD) H/O toe surgery Family History Family History Father Diabetes mellitus Depression Hypertension Family history of cardiovascular disease Sibling Depression Hypertension Mother Family history of cardiovascular disease Social History Social History (Updated 05/15/23 @ 13:27 by Pipe Young MD) Social History: No history of tobacco. Smokes marijuana once every other weekend. No history of alcohol use. No history of IV drug use. Lives at home with his mother, father, sister and nephew. He nominates his sister to be the individual would make medical decisions for him if h is unable. He is full code. Smoking status: Never smoker Second hand tobacco smoke exposure: Yes Alcohol intake: never Substance use: current Substance use type: marijuana Other substance usage details: gummys and smokes about every other weekend Do You Feel Safe in your Home?: Yes Lack of Transportation: No Lack of Food: Never True Current Housing: I Have Housing Concerned About Future Housing: No Difficulty Paying Gas/Electric Bills:
[2023-05-17 10:24] LABS: Activated Clotting Time 152 SEC (74-137)
[2023-05-17 10:24] LABS: Activated Clotting Time 158 SEC (74-137)
--- NOTE | 2023-05-17 10:27 | WPDCARDPROC ---
Cardiac Cath Procedure Note Date of procedure:: 05/17/23 Performing physician:: Joshua Dorsey MD Indication:: non ST-elevation IA Brief clinical history:: this is a 38-year-old man with hypertension and morbid obesity but no prior history of heart disease. He experienced ischemic chest pain over the weekend and was hospitalized for evaluation. Electrocardiogram was unremarkable however he did have a modest troponin rise resulting in the recommendation to perform angiography. Procedure Procedure performed:: Left ventriculogram coronary angiography IFR of left anterior descending Sedation/Medication given:: fentanyl 50 mg Versed 2 mg case start time 9:38 a.m. case end time 10:20 a.m. sedation provided by Yessy Bulnt RN trained observer Access site:: right femoral artery Estimated blood loss:: 25 cc Procedure note:: patient was brought to the cardiac catheterization lab in the postabsorptive state. IV heparin was running on the floor which was stopped when he was brought to the shop laborer. The femoral triangle was prepped and draped in the usual fashion. Anesthesia was given with 50 cc of lidocaine infiltrated locally. Following this the femoral artery was punctured using the modified Seldinger technique and a 5 Gib[place]arian vascular sheath was placed. I then used a 5 [place] angled pigtail catheter perform a left ventriculogram in the LINDQUIST projection. Following this the coronary arteries were engaged and injected using 5 [place]tarian FL4 and JR4 catheters respectively. Following this the cineangiograms were reviewed. I elected to perform IFR of the left anterior descending. ACT at that time was 152 he was given an additional 5000 units of intravenous heparin bolus. Following this IFR was measured in the LAD the results were reviewed and the case was terminated. The patient was taken to the holding area for manual sheath removal. The procedure was well tolerated and uncomplicated there was no evidence of groin hematoma at the conclusion of the case however this patient is morbidly obese and significant care will be taken to observe the puncture site for this reason. Findings:: Hemodynamics: Central aortic pressure is 126 over 84 left ventricle 126 over 8 end-diastolic pressure 18 there is no gradient on pullback across the aortic valve. Left ventricle: The LV is normal in size the inferior posterior segment is moderately hypodynamic but not akinetic the remainder of the LV contracts well. The global ejection fraction I visually estimate to be 50-55%. The left main coronary artery is large caliber and widely patent left anterior descending is a large caliber vessel extending down to the apex. There is atherosclerotic stenosis in the proximal 3rd of the LAD which in some views appears to be trivial in other views appears to be possibly 60-70%. There are mild luminal irregularities in the mid to distal LAD but no flow-limiting disease is seen. The circumflex is a large caliber artery giving rise to 3 marginal branches the 2nd marginal branch has a proximal stenosis of 80-90%. The large 3rd marginal branch has a ostial stenosis of 95-99%. The posterior branch at this bifurcation also has at least 80% stenosis at its origin at the site of the bifurcation with the Large 3rd OM. The posterior branch of the circumflex goes on to provide collateral filling to the Distal right coronary with a large-sized RPDA and smaller RPL branch. The right coronary is medium in caliber and is severely diffusely diseased. There is diffuse 99% stenosis in the 2nd portion of the RCA with very little if any antegrade filling into the distal portion of the vessel. The right coronary is functionally occluded and collateralized as described Conclusion:: 1. significant multivessel coronary disease involving moderate proximal LAD disease which appears to be non flow limiting as IFR was 0.92. 2. Two areas of significant
[2023-05-17 11:49] LABS: Partial Thromboplastin Time 43.4 SECONDS (22.3-36.8)
[2023-05-17 11:53] LABS: Activated Clotting Time 163 SEC (74-137)
--- NOTE | 2023-05-17 11:54 | PM.IMPN ---
Progress Note: A&P Assessment and Plan (1) Non-ST elevation [place] (NSTEMI): Code(s): I21.4 - Non-ST elevation (NSTEMI) myocardial infarction Status: Acute Assessment and Plan: Patient presents with chest pain. He does not do heavy lifting or other strenuous activity at work. Does not appear that he has had any prodromal symptoms prior to the onset of the chest pain. Atypical presentation but troponin are elevated making it concerning for underlying coronary disease. EKG showing nonspecific ST T wave changes but no change from 2021. Repeat EKG shows very similar findings. Echo showing EF 60-65%, grade I diastolic dysfunction but limiting due to his size. Cardiology consulted He was started on Heparin gtt and treated with ASA, metoprolol and lipitor. LHC this morning showin. Significant multivessel coronary disease involving moderate proximal LAD disease which appears to be non flow limiting as IFR was 0.92. 2.Two areas of significant disease circumflex at the origin of the moderate-sized 2nd OM branch as well as the bifurcation of the large 3rd OM with the posterior circumflex.? The posterior circumflex also goes on to collateralize the occluded RCA 3. Severe diffuse disease of the right coronary artery as described above with functional occlusion of the vessel with diffuse 99% stenosis? In the 2nd portion of the vessel. 4.?Inferoposterior hypokinesia as expected with occlusion and collateral flow to the RCA with overall normal ejection fraction and slightly elevated LVEDP Continue medical management. Plan for referal for possible CABG. (2) CAD (coronary artery disease): Code(s): I25.10 - Atherosclerotic heart disease of [place] coronary artery without angina pectoris Status: Acute Assessment and Plan: As above (3) HTN (hypertension): Qualifiers: Hypertension type: essential hypertension Qualified Code(s): I10 - Essential (primary) hypertension Code(s): I10 - Essential (primary) hypertension Status: Acute Assessment and Plan: Patient has a history of hypertension and was on lisinopril/HCTZ chronically. Chart review shows blood pressure is reasonably well controlled. IV metoprolol given x1 in the ED and started on scheduled metoprolol. Monitor blood pressure and adjust medications accordingly. (4) Hyperlipidemia: Code(s): E78.5 - Hyperlipidemia, unspecified Status: Acute Assessment and Plan: Cholesterol 201 with LDL 150 and HDL 30. LFTs normal. Lipitor started. (5) Hyperglycemia: Code(s): R73.9 - Hyperglycemia, unspecified Status: Acute Assessment and Plan: Glucose was 171 on admission. Most likely this was fasting. He may have underlying diabetes. A1c 6.0. The patient's blood glucose was reviewed on 05/17 Glucose remains well controlled. Continue AccuCheks covering with sliding scale. Hypoglycemia protocol available as needed. Continue to monitor (6) Psoriasis: Code(s): L40.9 - Psoriasis, unspecified Status: Acute Assessment and Plan: Patient with psoriasis but does not appear to be well controlled. Continue clobetasol ointment (7) Morbid obesity: Code(s): E66.01 - Morbid (severe) obesity due to excess calories Status: Acute Assessment and Plan: BMI 53. Healthy lifestyle choices recommended. Plan DVT prophylaxis -heparin Code status -full Subjective Date/time seen: 05/17/23 11:54 Interval history: 38yo male with HTN and psoriasis here for chest pain.? No problems overnight. No CP or SOB. [place] link was off at times per patient Exam Narrative: AF 98.0 146/98 86 18 96% ra Gen - NARD Chest - CTA bilaterally. nml RR CV - RRR. S1-S2. Tele showing no significant dysrhythmias Abd - Soft. Nontender. Obese. Positive bowel sounds. Ext - no pedal edema. Neuro - nonfocal Psych - normal mood and affect. Skin - warm and dry.
[2023-05-17 13:31] LABS: Partial Thromboplastin Time 28.7 SECONDS (22.3-36.8)
[2023-05-17] MEDS: SODIUM CHLORIDE 0.9% IV 1,000 ML 125 ML IV CONT (14:00)
--- NOTE | 2023-05-17 15:50 | PC.NURSE ---
Report received from VLADIMIR Patterson. Patient back to room without issue. Right groin assessed by RN, no hematoma, no bruising, no tenderness to site noted. Right Pedal pulse palpable.
[2023-05-17 16:33] LABS: Glucose Point of Care 89 mg/dl (65-105)
--- NOTE | 2023-05-17 16:42 | PCCPR ---
Seen patient at bedside, discussed cardiac rehab upon discharge. Program explained and information given to patient.
[2023-05-17 17:00] LABS: Activated Clotting Time 158 SEC (74-137)
[2023-05-17 20:29] LABS: Glucose Point of Care 92 mg/dl (65-105)
[2023-05-17] MEDS: ACETAMINOPHEN 500 MG TABLET 1000 MG PO (23:18)
[2023-05-18] VITALS (20 sets, daily range): BP systolic 117–142; BP diastolic 59–84; PULSE 71–100; RESP 16–18; TEMP 36.2–36.7; O2SAT 96–98
[2023-05-18 05:30] LABS: Hemoglobin 13.7 g/dL (14.0-18.0); Mean Corpuscular HGB Conc 33.4 g/dl (32-36); Mean Corpuscular Hemoglobin 28.8 pg (26-34); Mean Corpuscular Volume 86.3 fl (80-100); Mean Platelet Volume 8.8 fl (7.4-10.4); Platelet Count Result 240 k/mm3 (150-375); Red Blood Count 4.75 M/mm3 (4.6-6.20); White Blood Count 9.3 K/mm3 (4.5-10.0)
[2023-05-18 05:41] LABS: Partial Thromboplastin Time 30.5 SECONDS (22.3-36.8)
[2023-05-18 05:45] LABS: Anion Gap 8 mmol/L (8-16); Blood Urea Nitrogen 10 mg/dL (9-20); Calcium 9.4 mg/dL (8.4-10.2); Carbon Dioxide 26 mmol/L (22-30); Chloride 102 mmol/L (98-107); Estimated CRCL calculation 156 ml/min; Estimated Glomerular Filt Rate > 60; Glucose 102 mg/dL (65-110); Potassium 3.8 mmol/L (3.4-5.0); Sodium 136 mmol/L (137-145)
[2023-05-18 07:53] LABS: Glucose Point of Care 97 mg/dl (65-105)
[2023-05-18] MEDS: ASPIRIN 81 MG CHEWABLE TABLET PO (09:47)
[2023-05-18] MEDS: ATORVASTATIN 40 MG TABLET PO (09:47)
[2023-05-18] MEDS: METOPROLOL TARTRATE 25 MG TABLET PO ×2 (09:48→20:24)
[2023-05-18] MEDS: CLOBETASOL PROPIONATE 0.05% OINT 30 GM 1 APPLIC TOPICAL (09:48)
[2023-05-18] MEDS: ENOXAPARIN 40 MG/0.4 ML SYRINGE SUB-Q (09:48)
[2023-05-18 12:14] LABS: Glucose Point of Care 91 mg/dl (65-105)
--- NOTE | 2023-05-18 12:52 | PM.PNCARD ---
Progress Note: A&P Assessment and Plan (1) Non-ST elevation [place] (NSTEMI): Code(s): I21.4 - Non-ST elevation (NSTEMI) myocardial infarction Status: Acute Assessment and Plan: Cardiac catheterization 05/17/[address] Dorsey shows: 1. ? Significant multivessel coronary disease involving moderate proximal LAD disease which appears to be non flow limiting as IFR was 0.92. 2.? ? Two areas of significant disease circumflex at the origin of the moderate-sized 2nd OM branch as well as the bifurcation of the large 3rd OM with the posterior circumflex.? The posterior circumflex also goes on to collateralize the occluded RCA 3. ? Severe diffuse disease of the right coronary artery as described above with functional occlusion of the vessel with diffuse 99% stenosis? In the 2nd portion of the vessel. 4.? ? Inferoposterior hypokinesia as expected with occlusion and collateral flow to the RCA with overall normal ejection fraction and slightly elevated LVEDP Patient is currently awaiting transfer to [place]. Continue ASA, statin, beta juan manuel. (2) HTN (hypertension): Qualifiers: Hypertension type: essential hypertension Qualified Code(s): I10 - Essential (primary) hypertension Code(s): I10 - Essential (primary) hypertension Status: Acute Assessment and Plan: Stable, continue Metoprolol (3) Hyperlipidemia: Code(s): E78.5 - Hyperlipidemia, unspecified Status: Acute Assessment and Plan: Continue statin Subjective Date/time seen: 05/18/23 12:52 Interval history: Follow-up visit in this 38-year-old man with: Acute coronary syndrome/non ST elevation [place]. Patient doing well this morning without any chest pain, shortness of breath or other concerns. Awaiting transfer. Exam Const: General: comfortable and no acute distress Other: Morbidly obese HENMT: Mouth: Yes moist mucous membranes Eyes: General: appearance normal, both eyes and all related structures Sclera: sclerae normal Neck: Neck: supple Resp: Effort & Inspection: normal respiratory effort Cardio: Rate: regular rate Rhythm: regular rhythm Skin: General skin exam: normal color Neuro: Speech: normal speech Psych: Mental Status: mental status grossly normal Affect: normal affect Objective Data Vital Signs Vital Signs: Vital Signs - 24 hr 05/17/23 14:12 05/17/23 14:21 05/17/23 14:36 Temperature Pulse Rate 82 84 87 Pulse Rate [Right Pedal (Dorsalis Pedis) Palpation] Respiratory Rate 14 21 H 21 H Blood Pressure 124/79 133/76 130/76 Pulse Oximetry 99 96 98 Oxygen Delivery Room Air Room Air Room Air 05/17/23 14:36 05/17/23 14:45 05/17/23 14:45 Temperature Pulse Rate 84 Pulse Rate [Right Pedal (Dorsalis Pedis) Palpation] 84 84 Respiratory Rate 17 Blood Pressure 129/75 Pulse Oximetry 98 Oxygen Delivery Room Air 05/17/23 15:00 05/17/23 15:00 05/17/23 15:22 Temperature Pulse Rate 86 84 Pulse Rate [Right Pedal (Dorsalis Pedis) Palpation] 84 Respiratory Rate 17 16 Blood Pressure 129/67 124/63 Pulse Oximetry 96 98 Oxygen Delivery Room Air Room Air 05/17/23 15:30 05/17/23 16:00 05/17/23 16:31 Temperature 36.7 C 36.7 C Pulse Rate 87 85 88 Pulse Rate [Right Pedal (Dorsalis Pedis) Palpation] Respiratory Rate 10 L 18 18 Blood Pressure 121/76 133/84 147/89 H Pulse Oximetry 99 97 97 Oxygen Delivery Room Air 05/17/23 16:00 05/17/23 16:00 05/17/23 18:00 Temperature Pulse Rate 91 91 Pulse Rate [Right Pedal (Dorsalis Pedis) Palpation] Respiratory Rate Blood Pressure Pulse Oximetry 97 Oxygen Delivery Room Air 05/17/23 18:00 05/17/23 19:15 05/17/23 20:30 Temperature 36.8 C 36.8 C Pulse Rate 94 95 88 Pulse Rate [Right Pedal (Dorsalis Pedis) Palpation] Respiratory Rate 18 18 Blood Pressure 133/74 143/83 H Pulse Oximetry 97 98 Oxygen Delivery 05/17/23 20:00 05/17/23 20:51 05/17/23 20:00 [facility]
[2023-05-18 16:54] LABS: Glucose Point of Care 96 mg/dl (65-105)
--- NOTE | 2023-05-18 17:54 | PM.IMPN ---
Progress Note: A&P Assessment and Plan (1) Non-ST elevation [place] (NSTEMI): Code(s): I21.4 - Non-ST elevation (NSTEMI) myocardial infarction Status: Acute Assessment and Plan: Patient presents with chest pain. He does not do heavy lifting or other strenuous activity at work. Does not appear that he has had any prodromal symptoms prior to the onset of the chest pain. Atypical presentation but troponin are elevated making it concerning for underlying coronary disease. EKG showing nonspecific ST T wave changes but no change from 2021. Repeat EKG shows very similar findings. Echo showing EF 60-65%, grade I diastolic dysfunction but limiting due to his size. Cardiology consulted He was started on Heparin gtt and treated with ASA, metoprolol and lipitor. [facility] 05/17/23 showin. Significant multivessel coronary disease involving moderate proximal LAD disease which appears to be non flow limiting as IFR was 0.92. 2.Two areas of significant disease circumflex at the origin of the moderate-sized 2nd OM branch as well as the bifurcation of the large 3rd OM with the posterior circumflex.? The posterior circumflex also goes on to collateralize the occluded RCA 3. Severe diffuse disease of the right coronary artery as described above with functional occlusion of the vessel with diffuse 99% stenosis? In the 2nd portion of the vessel. 4.?Inferoposterior hypokinesia as expected with occlusion and collateral flow to the RCA with overall normal ejection fraction and slightly elevated LVEDP Continue medical management with ASA, metoprolol and atorvastatin. Plan for transfer for possible CABG. (2) CAD (coronary artery disease): Code(s): I25.10 - Atherosclerotic heart disease of [place] coronary artery without angina pectoris Status: Acute Assessment and Plan: As above (3) HTN (hypertension): Qualifiers: Hypertension type: essential hypertension Qualified Code(s): I10 - Essential (primary) hypertension Code(s): I10 - Essential (primary) hypertension Status: Acute Assessment and Plan: Patient has a history of hypertension and was on lisinopril/HCTZ chronically. Chart review shows blood pressure is reasonably well controlled. IV metoprolol given x1 in the ED and started on scheduled metoprolol. Monitor blood pressure and adjust medications accordingly. (4) Hyperlipidemia: Code(s): E78.5 - Hyperlipidemia, unspecified Status: Acute Assessment and Plan: Cholesterol 201 with LDL 150 and HDL 30. LFTs normal. Lipitor started. (5) Hyperglycemia: Code(s): R73.9 - Hyperglycemia, unspecified Status: Acute Assessment and Plan: Glucose was 171 on admission. Most likely this was fasting. He may have underlying diabetes. A1c 6.0. The patient's blood glucose was reviewed on 05/18 Glucose remains well controlled. Continue AccuCheks covering with sliding scale. Hypoglycemia protocol available as needed. Continue to monitor (6) Psoriasis: Code(s): L40.9 - Psoriasis, unspecified Status: Acute Assessment and Plan: Patient with psoriasis but does not appear to be well controlled. Continue clobetasol ointment (7) Morbid obesity: Code(s): E66.01 - Morbid (severe) obesity due to excess calories Status: Acute Assessment and Plan: BMI 53. Healthy lifestyle choices recommended. Plan DVT prophylaxis -lovenox Code status -full Subjective Date/time seen: 05/18/23 17:54 Interval history: 38yo male with HTN and psoriasis here for chest pain.? No complaints. Feels well. No CP or SOB. No n/v. Exam Narrative: AF 98.1 139/75 88 18 97% ra Gen - NARD Chest - CTA bilaterally. nml RR CV - RRR. S1-S2. Tele showing no significant dysrhythmias Abd - Soft. Nontender. Obese. Positive bowel sounds. Ext - no pedal edema. Psych - normal mood and affect. Skin - warm and dry. psoriatic
[2023-05-18 20:24] LABS: Glucose Point of Care 102 mg/dl (65-105)
[2023-05-19] VITALS (15 sets, daily range): BP systolic 121–153; BP diastolic 82–103; PULSE 77–98; RESP 18; TEMP 36.6–36.7; O2SAT 95–98
[2023-05-19 08:12] LABS: Glucose Point of Care 86 mg/dl (65-105)
[2023-05-19] MEDS: ENOXAPARIN 40 MG/0.4 ML SYRINGE SUB-Q (09:10)
[2023-05-19] MEDS: ASPIRIN 81 MG CHEWABLE TABLET PO (09:10)
[2023-05-19] MEDS: METOPROLOL TARTRATE 25 MG TABLET PO (09:10)
[2023-05-19] MEDS: ATORVASTATIN 40 MG TABLET PO (09:10)
[2023-05-19] MEDS: CLOBETASOL PROPIONATE 0.05% OINT 30 GM 1 APPLIC TOPICAL (09:11)
[2023-05-19 11:27] LABS: Glucose Point of Care 82 mg/dl (65-105)
--- NOTE | 2023-05-19 13:14 | PM.PNCARD ---
Progress Note: A&P Assessment and Plan (1) Non-ST elevation [place] (NSTEMI): Code(s): I21.4 - Non-ST elevation (NSTEMI) myocardial infarction Status: Acute Assessment and Plan: Cardiac catheterization 05/17/[address] Dorsey shows: 1. ? Significant multivessel coronary disease involving moderate proximal LAD disease which appears to be non flow limiting as IFR was 0.92. 2.? ? Two areas of significant disease circumflex at the origin of the moderate-sized 2nd OM branch as well as the bifurcation of the large 3rd OM with the posterior circumflex.? The posterior circumflex also goes on to collateralize the occluded RCA 3. ? Severe diffuse disease of the right coronary artery as described above with functional occlusion of the vessel with diffuse 99% stenosis? In the 2nd portion of the vessel. 4.? ? Inferoposterior hypokinesia as expected with occlusion and collateral flow to the RCA with overall normal ejection fraction and slightly elevated LVEDP Patient is currently awaiting transfer to [place]. Continue ASA, statin, beta juan manuel. (2) HTN (hypertension): Qualifiers: Hypertension type: essential hypertension Qualified Code(s): I10 - Essential (primary) hypertension Code(s): I10 - Essential (primary) hypertension Status: Acute Assessment and Plan: Stable, continue Metoprolol (3) Hyperlipidemia: Code(s): E78.5 - Hyperlipidemia, unspecified Status: Acute Assessment and Plan: Continue statin Subjective Date/time seen: 05/19/23 13:14 Interval history: Follow-up visit in this 38-year-old man with: Acute coronary syndrome/non ST elevation [place]. Patient doing well, no symptoms. Awaiting transfer. Exam Const: General: comfortable and no acute distress Other: Morbidly obese HENMT: Mouth: Yes moist mucous membranes Eyes: General: appearance normal, both eyes and all related structures Sclera: sclerae normal Neck: Neck: supple Resp: Effort & Inspection: normal respiratory effort Cardio: Rate: regular rate Rhythm: regular rhythm Skin: General skin exam: normal color Neuro: Speech: normal speech Psych: Mental Status: mental status grossly normal Affect: normal affect Objective Data Vital Signs Vital Signs: Vital Signs - 24 hr 05/18/23 14:00 05/18/23 15:28 05/18/23 16:00 Temperature 36.7 C Pulse Rate 82 88 88 Respiratory Rate 18 Blood Pressure 139/75 Pulse Oximetry 97 Oxygen Delivery 05/18/23 18:00 05/18/23 20:24 05/18/23 20:00 Temperature Pulse Rate 91 78 86 Respiratory Rate Blood Pressure Pulse Oximetry Oxygen Delivery 05/18/23 20:00 05/18/23 20:41 05/18/23 21:49 Temperature 36.7 C Pulse Rate 86 100 82 Respiratory Rate 18 18 Blood Pressure 135/81 Pulse Oximetry 97 97 Oxygen Delivery Room Air 05/18/23 23:05 05/18/23 23:05 05/18/23 23:33 Temperature 36.7 C Pulse Rate 98 98 84 Respiratory Rate 18 18 Blood Pressure 117/59 L Pulse Oximetry 97 98 Oxygen Delivery Room Air 05/19/23 02:00 05/19/23 05:58 05/19/23 04:00 Temperature 36.7 C Pulse Rate 78 98 78 Respiratory Rate 18 Blood Pressure 147/82 H Pulse Oximetry 97 Oxygen Delivery 05/19/23 04:00 05/19/23 06:00 05/19/23 07:14 Temperature 36.6 C Pulse Rate 78 84 80 Respiratory Rate 18 18 Blood Pressure 153/103 H Pulse Oximetry 97 98 Oxygen Delivery Room Air 05/19/23 09:01 05/19/23 09:10 05/19/23 10:37 Temperature Pulse Rate 93 Respiratory Rate Blood Pressure 121/87 Pulse Oximetry 95 Oxygen Delivery Room Air 05/19/23 08:00 05/19/23 10:00 05/19/23 11:47 Temperature 36.6 C Pulse Rate 91 80 79 Respiratory Rate 18 Blood Pressure 148/91 H Pulse Oximetry 96 Oxygen Delivery Intake/Output Intake/Output: Intake & Output 05/16/23 05/17/23 05/18/23 05/19/23 23:59 23:59 23:59 23:59 Intake Total 1410 1682 1270 640 Output Total 1900 1200 50
--- NOTE | 2023-05-19 16:14 | PM.TDS ---
Transfer Discharge Sum: Prov Provider Date of admission: 05/15/23 13:50 Primary care physician: Annmarie Brown MD Admitting clinician: Mark Carey MD Attending physician on admission: Pipe Young Consults: 05/15/23 Consult to Physician Routine Comment: Consulting Provider: Kendra Gambino Reason for consultation: NSTEMI Has provider been notified: Yes Attending physician on discharge: Rebecca Tellez Discharging clinician: Rebecca Tellez Anticipated date of transfer: 05/19/23 Receiving physician/facility: [facility] DS: Admitting Diagnosis Discharge Date May 19, 2023 Admitting Diagnosis Chest pain DS: Discharge Diagnosis Discharge Diagnosis (1) CAD (coronary artery disease): Code(s): I25.10 - Atherosclerotic heart disease of [place] coronary artery without angina pectoris Status: Acute (2) Morbid obesity: Code(s): E66.01 - Morbid (severe) obesity due to excess calories Status: Acute (3) Non-ST elevation [place] (NSTEMI): Code(s): I21.4 - Non-ST elevation (NSTEMI) myocardial infarction Status: Acute Transfer Discharge Sum: Med Medications Active and Home Medications: Home Medications clobetasol 0.05 % topical ointment 1 applic topical DAILY PRN psoriasis 03/14/22 [History Confirmed 05/15/23] lisinopril 10 mg-hydrochlorothiazide 12.5 mg tablet 1 tablet PO DAILY #90 tabs 09/28/22 [Rx Confirmed 05/15/23] Active Medications Acetaminophen (Acetaminophen 500 Mg Tablet) 1,000 mg PO Q6H PRN PRN Reason: Mild Pain (1-3) or Fever Last Admin: 05/17/23 23:18 Dose: 1,000 mg Aspirin (Aspirin 81 Mg Chewable Tablet) 81 mg PO DAILY@0800 [facility] Last Admin: 05/19/23 09:10 Dose: 81 mg Atorvastatin Calcium (Atorvastatin 40 Mg Tablet) 40 mg PO DAILY [facility] Last Admin: 05/19/23 09:10 Dose: 40 mg Clobetasol Propionate (Clobetasol Propionate 0.05% Oint 30 Gm) 1 applic TOPICAL DAILY PRN PRN Reason: psoriasis Last Admin: 05/19/23 09:11 Dose: 1 applic Dextrose (Dextrose 50% 25 Gm/50 Ml Syringe) 12.5 gm IV PUSH PRN PRN; Protocol PRN Reason: Hypoglycemia Enoxaparin Sodium (Enoxaparin 40 Mg/0.4 Ml Syringe) 40 mg SUB-Q DAILY [facility] Last Admin: 05/19/23 09:10 Dose: 40 mg Glucagon (Glucagon For Inj 1 Mg Vial) 1 mg IM PRN PRN; Protocol PRN Reason: Hypoglycemia Glucose (Glucose Oral Gel 15 Gm Of Glucse In 37.5 Gm Tube) 15 gm PO PRN PRN; Protocol PRN Reason: Hypoglycemia Dextrose (Dextrose 5% 1,000 Ml) 1,000 mls @ 100 mls/hr IVPB PRN PRN; Protocol PRN Reason: Hypoglycemia Insulin Aspart (Insulin Aspart (*Bkc) 100 Units/Ml) 3 - 6 units SUB-Q TIDWM [place]; Protocol Last Admin: 05/19/23 13:28 Dose: Not Given Metoprolol Tartrate (Metoprolol Tartrate 25 Mg Tablet) 25 mg PO Q12HR [facility] Last Admin: 05/19/23 09:10 Dose: 25 mg Transfer Discharge Sum: Hosp Hospital Course Hospital course: Mr. Mendes is a pleasant 38-year-old male with past medical history hypertension, morbid obesity, and psoriasis who presented with chest pain which awoke him from sleep described as pressure and slight radiation to left chest without other associated symptoms. Initially his troponin peaked at 2.0 and EKG demonstrating nonspecific ST T wave changes unchanged from 2021. Diagnosed with NSTEMI the patient was started on heparin drip aspirin metoprolol and Lipitor. On 05/17 the patient underwent cardiac catheterization which demonstrated the following 1. ? significant multivessel coronary disease involving moderate proximal LAD disease which appears to be non flow limiting as IFR was 0.92. 2.? ? Two areas of significant disease circumflex at the origin of the moderate-sized 2nd OM branch as well as the bifurcation of the large 3rd OM with the posterior circumflex.? The posterior circumflex also goes on to collateralize the occluded RCA 3. ? severe diffuse disease of the right coronary artery as described above with functional occlusion of the vessel with diffuse 99% steno
--- NOTE | 2023-05-19 16:35 | PC.NURSE ---
[facility]
[2023-05-19 21:03] LABS: Glucose Point of Care 86 mg/dl (65-105)
== END 2023-05-19 19:10 | disposition short-term general hospital (02) | DRG 281 ==
LOC: ANHED 04:59 → ANHIMU 19:34
PROVIDERS: Emergency Medicine; Internal Medicine; Specialist; Admitting Provider Student in an Organized Health Care Education/Training Program; Emergency Provider Emergency Medicine; PCP Family Medicine; Visit Provider General Practice
PROC: 4A023N7 Measurement of Cardiac Sampling and Pressure, Left Heart, Percutaneous Approach (ICD-10-PCS; CPT 93452; principal; 2023-05-17 09:00)
PROC: 4A033BC Measurement of Arterial Pressure, Coronary, Percutaneous Approach (ICD-10-PCS; CPT 93571; 2023-05-17 09:00)
DX: I21.4 Non-ST elevation (NSTEMI) myocardial infarction (principal); Z68.42 Body mass index [BMI] 45.0-49.9, adult; E66.01 Morbid (severe) obesity due to excess calories; I25.10 Atherosclerotic heart disease of native coronary artery without angina pectoris; I10 Essential (primary) hypertension; L40.9 Psoriasis, unspecified; E78.5 Hyperlipidemia, unspecified; R73.9 Hyperglycemia, unspecified
CPT/HCPCS: 36415; 71046; 80048; 80053; 80061; 82948; 83036; 83690; 83880; 84484; 85025; 85027; 85380; 85610; 85730; 93005; 93306; 93458; 93571; 94762; 96374; 96375; 99285; A9270; C1769; C1887; C1894; J1644; J1650; J2250; J3010; J7030; J7040

== ENCOUNTER 2023-10-20 15:00 | Outpatient (RCR) | payer BC, SELFPAY ==
[2023-09-21 15:12] VITALS: BP 128/80; PULSE 94; RESP 16; O2SAT 95
[2023-09-21 15:35] VITALS: PULSE 99
== END 2023-11-11 15:16 | disposition home or self-care (01) ==
LOC: ANHCPREHAB 15:00
PROVIDERS: PCP Family Medicine; Visit Provider Specialist
DX: Z95.1 Presence of aortocoronary bypass graft (principal)
CPT/HCPCS: 93798

== ENCOUNTER 2024-12-11 14:26 | Emergency (ER) | payer BC, SELFPAY ==
[2024-12-11 14:37] VITALS: BP 135/83; PULSE 85; RESP 16; TEMP 36.3; O2SAT 97
--- NOTE | 2024-12-11 15:17 | ED.SKABFB ---
HPI - Skin/Abscess/Foreign Bdy General Chief complaint: Skin/Abscess/Foreign Body Stated complaint: Blister R Leg Time Seen by Provider: 12/11/24 15:00 Source: patient and RN notes reviewed Mode of arrival: ambulatory Limitations: no limitations History of Present Illness HPI narrative: 39-year-old male presents Express Care complaining of possible infected blister on his right lower extremity for last week. Patient says blister popped approximately 1 week ago since then he has noticed increased redness, swelling, pain, drainage to the blister. Patient has any fevers, body aches, chills, nausea vomiting or other symptoms. The patient is morbidly obese and has a history of quadruple bypass surgery. Patient also reports he has chronic leg edema. Related Data Home Medications ?Medication ?Instructions ?Recorded ?Confirmed ?Last Taken ?Type amlodipine 2.5 mg tablet 2.5 mg PO DAILY 06/07/23 12/11/24 Unknown History atorvastatin 80 mg tablet 80 mg PO DAILY 06/07/23 12/11/24 Unknown History clopidogrel 75 mg tablet 75 mg PO DAILY 06/07/23 06/07/23 Unknown History furosemide 40 mg tablet 40 mg PO QAM 06/07/23 06/07/23 Unknown History methocarbamol 500 mg tablet 500 mg PO TID PRN 06/07/23 Unknown History metoprolol tartrate 50 mg tablet 50 mg PO BID 06/07/23 12/11/24 Unknown History oxycodone 5 mg capsule 5 mg PO Q8H PRN 06/07/23 Unknown History potassium chloride 20 mEq 40 meq PO DAILY 06/07/23 06/07/23 Unknown History tablet,extended release sennosides 8.6 mg-docusate sodium 1 tab-cap PO QHS 06/07/23 Unknown History 50 mg tablet (Senna with Docusate Sodium) aspirin 81 mg tablet,delayed mg 12/11/24 Unknown History release furosemide 20 mg tablet mg 12/11/24 Unknown History Allergies Allergy/AdvReac Type Severity Reaction Status Date / Time No Known Allergies Allergy Unknown Verified 12/11/24 14:41 Review of Systems Review of Systems: CONSTITUTIONAL: Denies fever, chills, or sweats. EYES: Denies visual changes, redness, or discharge. ENT: Denies rhinorrhea, congestion, sore throat, or otalgia. CARDIOVASCULAR: Denies chest pain, palpitations, or edema. RESPIRATORY: Denies cough or dyspnea. GASTROINTESTINAL: Denies abdominal pain, nausea, vomiting, or diarrhea. GENITOURINARY: Denies dysuria or hematuria. SKIN: Denies rash or itching. Positive for wound. MUSCULOSKELETAL: Denies back pain, joint pain, or myalgia. NEUROLOGIC: Denies headache, numbness, or weakness. PSYCHIATRIC: Denies anxiety or depression. All other systems reviewed are negative, except as documented in HPI. [facility] Past Medical History Medical History Morbid obesity Psoriasis HTN (hypertension) Surgical History Surgical History History of heart surgery H/O toe surgery Family History Family History Father Family history of cardiovascular disease Diabetes mellitus Depression Hypertension Hyperlipemia Acute myocardial infarction Cancer Sibling Depression Hypertension Mother Family history of cardiovascular disease Hyperlipemia Hypertension Cerebrovascular accident Social History Social History Social History: No history of tobacco. Smokes marijuana once every other weekend. No history of alcohol use. No history of IV drug use. Lives at home with his mother, father, sister and nephew. He nominates his sister to be the individual would make medical decisions for him if h is unable. He is full code. Smoking status: Never smoker Second hand tobacco smoke exposure: Yes Additional smoking assessment comments: marijuana every other weekend Alcohol intake: never Substance use: current Substance use type: marijuana Other substance usage details: gummys and smokes about every other weekend Do You Feel Safe in your Home?: Yes Lack of Transportation: No Lack of Food: Never True Current Housing: I Have Housing Concerned About Future Housing: No Difficulty Paying Gas/Electric Bills: No Difficulty Paying for Meds: No Currently Unemployed: No Education: Don't Know Difficulty w/ Childcare or Family Care: No Occupation/Education: occupation Gender identity (if verbalized by the patient): Male Spiritual care concerns: No Comments At the time of my signature, I reviewed and agree with the nursing past medical, surgical, social, and family history. There is no relevant family history pertinent to the patient complaint. Exam Narrative: GENERAL: This is a well-nourished, well-developed adult, in no apparent distress. They are non ill-appearing, nontoxic appearing. HEAD: normocephalic, atraumatic. EYES: Sclera clear/white. Conjunctiva normal. Vision is grossly intact. Extraocular movements intact EARS: External ears normal, Hearing grossly intact. NOSE: External nose normal THROAT: Mucous membranes moist, NECK: Neck supple, CARDIOVASCULAR: Regular rate and rhythm RESPIRATORY: Respiratory rate normal, respiratory effort nonlabored, no respiratory distress SKIN: warm, Dry, intact with no suspicious lesions or rash, good texture and turgor. NEURO: awake, alert, and oriented to person, place and time. There were no obvious focal neurologic abnormalities. EXTREMITIES: Stasis dermatitis present bilateral lower extremities. 3+ pitting edema. Right lower extremity: There is an erythematous exudate of wound present to the lateral lower extremity just above the right ankle. It is measuring approximately 10 cm by 4 point cm. No fluctuance, no induration. It is not hot to touch around the wound, there is erythema present likely from stasis dermatitis. Right foot without redness and mildly edematous, 2+ pitting. Right pedal pulse 2 +and palpable. Capillary refill less than 2 seconds. Neurovascular status intact distal to wound. Normal range of motion right ankle. Normal sensation. Patient able to wiggle his toes. Course Course Emergency Course: Portions of this record may have been created with voice recognition software Level of Care: Express Care Visit Vital Signs Vital signs: Vital Signs Temperature 97.3 F L 12/11/24 14:37 Pulse Rate 85 12/11/24 14:37 Respiratory Rate 16 12/11/24 14:37 Blood Pressure 135/83 12/11/24 14:37 Pulse Oximetry 97 12/11/24 14:37 Temperature 97.3 F L 12/11/24 14:37 Pulse Rate 85 12/11/24 14:37 Respiratory Rate 16 12/11/24 14:37 Blood Pressure 135/83 12/11/24 14:37 Pulse Oximetry 97 12/11/24 14:37 Reviewed MDM - Skin/Abscess/Foreign Bdy MDM Narrative Medical decision making narrative: Wound appears to be infected. Patient also has states this dermatitis to his bilateral lower extremities appears to be chronic in nature, though there is surrounding erythema to the wound the skin is not hot to touch, not indurated edema no area of fluctuance. Erythema does not extend into the foot. Neurovascular status intact distally. Will treat with Bactrim given his history of recent hospitalization for bypass surgery to cover for MRSA. Interaction noted with his potassium and Bactrim, according to UpToDate no known interaction or risk level A greater identified. No significant interaction indicated according up-to-date. Advised patient to follow-up with PCP for wound recheck, he may need a referral to wound care depending how well the wound heals. Nonadherent dressing applied to patient's wound by nursing staff today. Strict ER precautions discussed the patient's best developed worsening redness, swelling, pain, drainage, fevers or any other serious concerns. Discussed physical exam findings. Advised supportive measures and signs/symptoms to go to the ER. Pt is appropriate for outpt treatment and f/u. Differential Diagnosis Differential diagnosis: Likely abscess of skin or subcutaneous tissue, cellulitis and other (Infected wound, blister, stasis dermatitis, diabetic ulcer, ulcer) Critical Care Time Critical Care Time Critical Care Time: No Discharge Plan Discharge Clinical Impression: Wound of lower extremity Qualifiers: Encounter type: initial encounter Laterality: right Qualified Code(s): S81.801A - Unspecified open wound, right lower leg, initial encounter Patient Disposition: Home Condition: Stable Instructions: Antibiotic Form, Acute Wounds (DC) Additional Instructions: Take Bactrim as directed. Finish the course completely believes start to feel better. Wash the wound daily with mild soap and water. Keep the wound dry and covered with a non adherent semi occlusive dressing. Please wear compression stockings to to help with lower extremity edema. Keep the the leg elevated when your not walking around. Follow-up with your PCP in 3-5 days for wound recheck. If you need further wound care he will need a referral for your PCP to see the wound care team at [facility]. He developed worsening redness, swelling, pain, fevers, green says she will drainage, or any serious concerns please go to the ER immediately. Patient Language: Guatemalan Prescriptions: New sulfamethoxazole-trimethoprim [Bactrim DS] 800-160 mg tablet 1 tablet PO Q12H 7 Days Qty: 14 0RF No Action aspirin 81 mg tablet,delayed release (DR/EC) furosemide 20 mg tablet amlodipine 2.5 mg tablet 2.5 mg PO DAILY furosemide 40 mg tablet 40 mg PO QAM metoprolol tartrate 50 mg tablet 50 mg PO BID potassium chloride 20 mEq tablet extended release 40 meq PO DAILY clopidogrel 75 mg tablet 75 mg PO DAILY atorvastatin 80 mg tablet 80 mg PO DAILY methocarbamol 500 mg tablet 500 mg PO TID PRN oxycodone 5 mg capsule 5 mg PO Q8H PRN sennosides-docusate sodium [Senna with Docusate Sodium] 8.6-50 mg tablet 1 tab-cap PO QHS benzonatate 200 mg capsule 200 mg PO TID PRN (Reason: cough) Qty: 30 0RF Follow-up/Referrals: Annmarie Brown MD [Primary Care Provider, Family Practice] Time of Disposition: 15:15
== END 2024-12-11 15:19 | disposition home or self-care (01) ==
PROVIDERS: PCP Family Medicine
DX: S81.801A Unspecified open wound, right lower leg, initial encounter (principal); X58.XXXA Exposure to other specified factors, initial encounter; F12.90 Cannabis use, unspecified, uncomplicated; I10 Essential (primary) hypertension; L40.9 Psoriasis, unspecified; E66.01 Morbid (severe) obesity due to excess calories; Z68.43 Body mass index [BMI] 50.0-59.9, adult; Z95.1 Presence of aortocoronary bypass graft; Z79.82 Long term (current) use of aspirin
CPT/HCPCS: 99213; G0463